=== PATIENT | male | born 1980 | race American Indian/Alaskan Native ===

== ENCOUNTER 2016-09-28 06:24 | Day surgery (SDC) | payer BC ==
[~2016-09-28 06:24] MED LIST: NACL 0.9% 1000 ML 1,000 ML IV SCH; PEPCID PO NR; VANCOMYCIN/NS 1 GM/250 ML 1 GM/250 ML BAG IV NR; VERSED IV NR
[2016-09-28] MEDS ORDERED: SUBLIMAZE ONE (07:05)
[2016-09-28] MEDS ORDERED: DIPRIVAN 10 MG/ML IV ONE ×2 (07:05→09:17)
[2016-09-28] MEDS ORDERED: NACL BACTERIOSTATIC INFILTRATI ONE (07:07)
[2016-09-28] MEDS ORDERED: XYLOCAINE MPF 2% ONE (07:08)
--- NOTE | 2016-09-28 07:37 | Anesthesia Day of Surgery ---
Anesthesia Day of Surgery - Day of Surgery Patient Examined: Yes Patient H&P Reviewed: Yes Patient is NPO: Yes Beta Blockers: Yes
--- NOTE | 2016-09-28 07:39 | Anesthesia Consultation ---
Anesthesia Consult and Med Hx Date of service: 09/28/16 - Airway Anesthetic Teeth Evaluation: Good ROM Head & Neck: Adequate Mental/Hyoid Distance: Adequate Mallampati Class: Class II Intubation Access Assessment: Probably Good - Pulmonary Exam CTA: Yes - Cardiac Exam Cardiac Exam: RRR - Pre-Operative Health Status ASA Pre-Surgery Classification: ASA3 Proposed Anesthetic Plan: General - Pulmonary Hx Smoking: Yes (stopped 2015, cigar only) Hx Asthma: No Hx Sleep Apnea: No (HIGH RISK) - Cardiovascular System Hx Hypertension: Yes Hx Heart Attack/AMI: No - Central Nervous System Hx Seizures: Yes (WHILE HOSPITALIZED/[facility] 08/2016) CVA: No - Endocrine Hx Renal Disease: Yes Hx End Stage Renal Disease: Yes (07/2016 JAYDAIUS /GAVINO; ,, SAT) Hx Liver Disease: No Hx Non-Insulin Dependent Diabetes: No - Other Systems Hx Alcohol Use: No Hx Substance Use: No Hx Cancer: No Hx Obesity: Yes - Additional Comments Anesthesia Medical History Comments: NAC
[2016-09-28] MEDS ORDERED: PAPAVERINE ONE (07:42)
[2016-09-28] MEDS ORDERED: HEPARIN ONE (07:42)
[2016-09-28] MEDS ORDERED: PROTAMINE SULFATE ONE (07:42)
[2016-09-28] MEDS ORDERED: MARCAINE 0.5% INFILTRATI ONE ×2 (07:42→10:42)
[2016-09-28] MEDS ORDERED: NITROGLYCERIN SYRINGE 3 ML ONE (07:43)
[2016-09-28] MEDS ORDERED: NACL 0.9% 500 ML 500 ML ONE (07:43)
[2016-09-28] MEDS ORDERED: HEPARIN 10,000 UNITS/10 ML ONE (07:43)
[2016-09-28 07:55] LABS: Basophils % (Auto) 0.7 % (0.0-1.8); Eosinophils % (Auto) 6.6 % (0.0-4.3); Hematocrit 40.9 % (35.5-45.6); Hemoglobin 12.9 gm/dl (11.8-15.2); Mean Corpuscular HGB Conc 32 % (32-34); Mean Corpuscular Hemoglobin 27 pg (28-32); Mean Corpuscular Volume 84 fl (84-94); Platelet Count 227 K/mm3 (140-440); Red Blood Count 4.85 M/mm3 (3.65-5.03); Red Cell Distribution Width 16.6 % (13.2-15.2)
[2016-09-28 08:01] LABS: BUN/Creatinine Ratio 3.26; Calcium 9.7 mg/dL (8.4-10.2); Chloride 94.3 mmol/L (98-107); Potassium 5.2 mmol/L (3.6-5.0)
[2016-09-28] MEDS ORDERED: ZOFRAN ONE ×2 (09:03→11:48)
[2016-09-28] MEDS ORDERED: HEPARIN IV ONE (09:20)
[2016-09-28] MEDS ORDERED: NEO SYNEPHRINE ONE (09:23)
[2016-09-28] MEDS ORDERED: ROBINUL ONE (09:37)
[2016-09-28] MEDS ORDERED: ePHEDrine SULFATE ONE (09:40)
--- NOTE | 2016-09-28 09:52 | Fluoroscopy Report ---
Single fluoroscopic image of the chest: History: Permacath exchange. Findings: Tip of the permacath is noted in mid superior vena cava. No pneumothorax. Impression: Tip of permacath in mid superior vena cava.
[2016-09-28] MEDS ORDERED: NACL 0.9% IR ONE (10:43)
[2016-09-28] MEDS ORDERED: HEPARIN 10,000 UNITS/10 ML 2,000 UNIT in NACL 0.9% 500 ML 500 ML IR ONE (10:44)
--- NOTE | 2016-09-28 11:03 | Short Stay Summary ---
Short Stay Documentation Date of service: 09/28/16 Narrative H&P: See H&P - History H&P: obtained from office - Allergies and Medications Current Medications: Allergies Penicillins Adverse Reaction (Verified 09/21/16 13:49) Anaphylaxis Home Medications Medication Instructions Recorded Confirmed Last Taken Type Aspirin EC [Aspirin Enteric Coated 81 mg PO QDAY 09/21/16 09/21/16 09/28/16 05: 00 History TAB] Calcium Acetate 3 tab PO TID 09/21/16 09/28/16 09/27/16 History Isosorb Dinit/Hydralazine HCl 1 each PO TID 09/21/16 09/21/16 09/28/16 05:00 History [Bidil Tablet] Metoprolol [Lopressor TAB] 50 mg PO BID 09/21/16 09/21/16 09/28/16 05:00 History amLODIPine [Norvasc] 10 mg PO DAILY 09/21/16 09/21/16 09/28/16 05:00 History Active Medications Famotidine (Pepcid) 20 mg PO PREOP NR Stop: 09/28/16 21:00 Last Admin: 09/28/16 07:35 Dose: 20 mg Sodium Chloride (Nacl 0.9% 1000 Ml) 1,000 mls @ 42 mls/hr IV DIRECT SIGIFREDO Last Admin: 09/28/16 07:39 Dose: 42 mls/hr Vancomycin HCl (Vancomycin/Ns 1 Gm/250 Ml) 1 gm in 250 mls @ 166.667 mls/hr IV PREOP NR PRN Reason: Protocol Stop: 09/28/16 23:00 Last Admin: 09/28/16 07:49 Dose: 166.667 mls/hr Midazolam HCl (Versed) 2 mg IV PREOP NR Stop: 09/28/16 23:59 Last Admin: 09/28/16 07:51 Dose: 2 mg - Brief post op/procedure progress note Date of procedure: 09/28/16 Pre-op diagnosis: End-Stage Renal Disease And Complications of Dialysis Access Post-op diagnosis: same Procedure: 1. Exchange of Right Internal Jugular Permacath to 23 cm GlidePath Permacath Over Wire 2. Radiologic Supervision and Interpretation 3. Creation of Left Brachiobasilic Arteriovenous Fistula Anesthesia: GETA Surgeon: THOMAS MANDUJANO Estimated blood loss: minimal Pathology: list (indwelling permacath) Specimen disposition: to lab Condition: stable - Disposition Condition at discharge: Good Disposition: DC-01 TO HOME OR SELFCARE Short Stay Discharge Plan Activity: other (no heavy lifting with left arm) Wound: open to air, keep clean and dry, other (okay to wash the wound with soap and water but do not soak in water) Follow up with: THOMAS MANDUJANO MD [Staff Physician] - 14 Days Prescriptions: HYDROcodone/APAP 7.5-325 [[place] 7.5/325] 1 each PO Q6HR PRN #60 tablet PRN Reason: Pain
--- NOTE | 2016-09-28 11:08 | Operative Report ---
Operative Report Operative Report: Date of procedure: 09/28/2016 Pre-operative diagnosis: End-stage Renal Disease And Complications of Dialysis Access Post-operative diagnosis: Same Procedure(s): 1. Exchange of Right Internal Jugular Permacath to 23 cm GlidePath Permacath Over Wire 2. Radiologic Supervision and Interpretation 3. Creation of Left Brachial Artery to Basilic Arteriovenous Fistula Surgeon: Elijah Adams MD Esthetics Instructor: None Anesthesia: Gen. endotracheal anesthesia EBL: Minimal Counts: Correct Complications: None Condition: Stable Findings: Successful placement of right internal jugular permacath with tip in the right atrium. Successful creation of left brachiobasilic arteriovenous fistula with palpable thrill and palpable radial pulse at the end of the case. Specimen: Previous indwelling right internal jugular permacath was discarded. Indication: The patient is a 36-year-old male with history of end-stage renal disease who is on hemodialysis through a right internal permacath. He is in need of long- term access and found to be a suitable candidate for creation of brachiobasilic arteriovenous fistula. In addition to require long-term access he has been having difficulty with use of his permacath. He requires permacath exchange. He was given risks, benefits, and alternative procedures and consented to procedure. Description of Procedure: The patient was brought to the operating room and laid in supine position. After general endotracheal anesthesia was administered the patient was prepped and draped in normal sterile fashion. A 0.035 J-wire was advanced through the indwelling permacath and into the central venous system under fluoroscopy. The cath was then dissected free from the surrounding tissue using a hemostat. The permacath was removed and a new permacath was advanced by Seldinger technique with the distal tip at the right atrium. The wire was removed and both ports were then aspirated and flushed and primed after performing on heparin. The 3- 0 Prolene was then used to secure the catheter in position. The catheter was then dressed sterilely. The final fluoroscopy demonstrated no evidence of pneumothorax and the tip of the catheter in the right atrium. The sterile field was then broken and the patient's left arm was then prepped and draped in normal sterile fashion. A transverse incision was created just below the antecubital crease. Dissection was carried down to the the basilic vein using sharp dissection. The vein was dissected out both proximally and distally and suture ligated and divided distally. I then ran a 3 Génesis proximally in the vein, to ensure patency of the vein. I then flushed the vein with heparinized saline and controlled flow with a bulldog clamp. I then dissected out the brachial artery through this incision circumferentially both proximal and distal and controlled th artery with vessel loops. I placed the vessel loops on tension, controlling the flow through the artery, and created an arteriotomy using an 11 blade and Fernandes scissors. I created an end to side anastomosis between the basilic vein and brachial artery using a 6-0 Prolene in running fashion. Prior to completing the anastomosis I flushed the artery both proximally and distally and then advanced a 3 Génesis proximally to break the spasm in the artery. I completed the anastomosis and removed all vessel loops allowing flow into the fistula which had an excellent thrill. I achieved hemostasis with a combination of direct pressure and electrocautery. Once hemostasis was achieved I anesthetized the wound with Marcaine. I closed the wound in 2 layers using 3-0 Vicryl in a running fashion to close the deep dermal layer and 4-0 Monocryl in a running fashion in the subcuticular layer. I dressed the wound with Surgicel. The patient tolerated the procedure well, all sponge needle and instrument counts were correct. The patient was taken to recovery in stable condition.
--- NOTE | 2016-09-28 11:42 | Post Anesthesia Evaluation ---
- Post Anesthesia Evaluation Patient Participated: Yes Airway Patent: Yes Stable Respiratory Function: Yes Temp > 96.8F: Yes Pain Manageable: Yes Adequeate Hydration: Yes Anesthesia Complications: No Block Receding Appropriately: Not Applicable
[2016-09-28] MEDS ORDERED: ZOFRAN IV PRN (12:15)
[2016-09-28 16:55] VITALS: BP 109/70
== END 2016-09-28 12:50 | disposition home or self-care (01) ==
LOC: OR 06:24
PROVIDERS: ATTEND Surgery Vascular Surgery
DX: T82.49XA Other complication of vascular dialysis catheter, initial encounter (principal); I12.0 Hypertensive chronic kidney disease with stage 5 chronic kidney disease or end stage renal disease; N18.6 End stage renal disease; D64.9 Anemia, unspecified; E55.9 Vitamin D deficiency, unspecified; E66.9 Obesity, unspecified; Z68.36 Body mass index [BMI] 36.0-36.9, adult; Z99.2 Dependence on renal dialysis; Z88.0 Allergy status to penicillin; Z88.1 Allergy status to other antibiotic agents; Z91.013 Allergy to seafood; Z91.010 Allergy to peanuts; Z79.82 Long term (current) use of aspirin; Z79.899 Other long term (current) drug therapy; Z98.890 Other specified postprocedural states; Z86.69 Personal history of other diseases of the nervous system and sense organs; Z87.891 Personal history of nicotine dependence; Z83.3 Family history of diabetes mellitus; Z82.49 Family history of ischemic heart disease and other diseases of the circulatory system; Y83.8 Other surgical procedures as the cause of abnormal reaction of the patient, or of later complication, without mention of misadventure at the time of the procedure
CPT/HCPCS: 36415; 36581; 36821; 77001; 80048; 85025; C1750; C1769; J1644; J2250; J2370; J2405; J2704; J3010; J3370; J7030; J7040; J2440; J2720

== ENCOUNTER 2017-04-23 08:22 | Day surgery (SDC) | payer BC, MEDICARE ==
[~2017-04-23 08:22] MED LIST changes: +HEPARIN 10,000 UNITS/10 ML ONE; +MARCAINE 0.5% INFILTRATI ONE; +NACL 0.9% 500 ML 500 ML ONE; +NITROGLYCERIN SYRINGE 0 ML ONE; +PAPAVERINE ONE; -PEPCID PO NR; +PROTAMINE SULFATE ONE; +SODIUM BICARBONATE ONE; -VERSED IV NR; +XYLOCAINE 1% 20 mL ONE
--- NOTE | 2017-04-23 09:01 | Anesthesia Consultation ---
Anesthesia Consult and Med Hx Date of service: 04/23/17 - Airway Anesthetic Teeth Evaluation: Good ROM Head & Neck: Adequate Mental/Hyoid Distance: Adequate Mallampati Class: Class II Intubation Access Assessment: Probably Good - Pulmonary Exam CTA: Yes - Cardiac Exam Cardiac Exam: RRR - Pre-Operative Health Status ASA Pre-Surgery Classification: ASA4 Proposed Anesthetic Plan: IV Sedation Nerve Block: supraclavicular block - Pulmonary Hx Smoking: Yes (former) Hx Asthma: No Hx Sleep Apnea: No (HIGH RISK) - Cardiovascular System Hx Hypertension: Yes Hx Heart Attack/AMI: No - Central Nervous System Hx Seizures: Yes (x1 only 08/2016) CVA: No Hx Psychiatric Problems: No - Endocrine Hx Renal Disease: Yes Hx End Stage Renal Disease: Yes Hx Liver Disease: No Hx Non-Insulin Dependent Diabetes: No - Other Systems Hx Alcohol Use: No Hx Substance Use: No Hx Cancer: No Hx Obesity: Yes - Additional Comments Anesthesia Medical History Comments: Informed consent obtained
[2017-04-23] MEDS ORDERED: DILAUDID IV PRN (09:02)
[2017-04-23] MEDS ORDERED: SUBLIMAZE IV NR (09:02)
[2017-04-23] MEDS ORDERED: PERCOCET 5/325 PO PRN (09:02)
--- NOTE | 2017-04-23 09:02 | Anesthesia Day of Surgery ---
Anesthesia Day of Surgery - Day of Surgery Patient Examined: Yes Patient H&P Reviewed: Yes Patient is NPO: Yes Beta Blockers: Yes (to be given in preop)
[2017-04-23] MEDS ORDERED: MARCAINE 0.5% 30 ML INFILTRATI ONE ×2 (09:17→11:34)
[2017-04-23] MEDS ORDERED: XYLOCAINE 1% 20 mL ONE (09:19)
[2017-04-23 09:30] LABS: Basophils % (Auto) 0.5 % (0.0-1.8); Eosinophils # (Auto) 0.2 K/mm3 (0.0-0.4); Eosinophils % (Auto) 3.1 % (0.0-4.3); Hematocrit 31.3 % (35.5-45.6); Hemoglobin 10.4 gm/dl (11.8-15.2); Lymphocytes # (Auto) 1.4 K/mm3 (1.2-5.4); Lymphocytes % (Auto) 27.1 % (13.4-35.0); Mean Corpuscular HGB Conc 33 % (32-34); Mean Corpuscular Hemoglobin 29 pg (28-32); Mean Corpuscular Volume 86 fl (84-94); Monocytes # (Auto) 0.7 K/mm3 (0.0-0.8); Monocytes % (Auto) 14.3 % (0.0-7.3); Platelet Count 265 K/mm3 (140-440); Red Blood Count 3.64 M/mm3 (3.65-5.03); Red Cell Distribution Width 18.4 % (13.2-15.2)
[2017-04-23] MEDS ORDERED: LOPRESSOR PO NR (10:00)
[2017-04-23] MEDS ORDERED: VERSED IV NR (10:00)
[2017-04-23 10:13] LABS: Calcium 9.5 mg/dL (8.4-10.2)
[2017-04-23] MEDS ORDERED: DIPRIVAN 10 MG/ML IV ONE ×2 (10:52→11:18)
[2017-04-23] MEDS ORDERED: XYLOCAINE CARDIAC IV ONE (10:52)
[2017-04-23] MEDS ORDERED: VERSED ONE (10:52)
[2017-04-23] MEDS ORDERED: SUBLIMAZE ONE (10:52)
[2017-04-23] MEDS ORDERED: MARCAINE 0.5% INFILTRATI ONE ×2 (11:34→14:47)
[2017-04-23] MEDS ORDERED: ZOFRAN ONE ×2 (11:37→15:40)
[2017-04-23] MEDS ORDERED: HEPARIN 10,000 UNITS/10 ML IV ONE (11:49)
[2017-04-23] MEDS ORDERED: NACL 0.9% 500 ML IRRIGATION ONE (11:49)
[2017-04-23] MEDS ORDERED: ePHEDrine SULFATE ONE (11:50)
[2017-04-23] MEDS ORDERED: NEO SYNEPHRINE/NS Syringe(OR USE) IV ONE (11:58)
[2017-04-23] MEDS ORDERED: ROBINUL ONE (12:34)
[2017-04-23] MEDS ORDERED: RIFADIN ONE (14:10)
--- NOTE | 2017-04-23 15:20 | Short Stay Summary ---
Short Stay Documentation Date of service: 04/23/17 Narrative H&P: See H&P - History H&P: obtained from office - Allergies and Medications Current Medications: Allergies Penicillins Adverse Reaction (Verified 04/22/17 11:22) Anaphylaxis Home Medications Medication Instructions Recorded Confirmed Last Taken Type Aspirin EC [Aspirin Enteric Coated 81 mg PO QDAY 09/21/16 04/22/17 09/28/16 05: 00 History TAB] Isosorbibe Dinit/Hydralazine 1 each PO TID 09/21/16 04/22/17 09/28/16 05:00 History [Bidil Tablet] Metoprolol [Lopressor TAB] 50 mg PO BID 09/21/16 04/22/17 09/28/16 05:00 History amLODIPine [Norvasc] 10 mg PO DAILY 09/21/16 04/22/17 09/28/16 05:00 History HYDROcodone/APAP 7.5-325 [[place] 1 each PO Q6HR PRN #60 tablet 09/28/16 04/22/17 Unknown Rx 7.5/325] Lisinopril [Zestril] 10 mg PO DAILY 04/22/17 04/22/17 Unknown History Sevelamer Carbonate [Renvela] 800 mg PO AC 04/22/17 04/22/17 Unknown History Active Medications Sodium Chloride (Nacl 0.9% 1000 Ml) 1,000 mls @ 42 mls/hr IV DIRECT SIGIFREDO Last Admin: 04/23/17 09:10 Dose: 42 mls/hr Vancomycin HCl (Vancomycin/Ns 1 Gm/250 Ml) 1 gm in 250 mls @ 166.667 mls/hr IV PREOP NR PRN Reason: Protocol Stop: 04/23/17 23:59 Last Admin: 04/23/17 10:33 Dose: 166.667 mls/hr Midazolam HCl (Versed) 2 mg IV PREOP NR Stop: 04/23/17 23:59 Last Admin: 04/23/17 09:21 Dose: 1 mg - Brief post op/procedure progress note Date of procedure: 04/23/17 Pre-op diagnosis: Complications of Dialysis Access Post-op diagnosis: same Procedure: Revision with Elevation of Left Brachiobasilic Arteriovenous Fistula Anesthesia: GETA Surgeon: THOMAS MANDUJANO Estimated blood loss: other (200 ml) Pathology: none Condition: stable - Disposition Condition at discharge: Good Disposition: DC-01 TO HOME OR SELFCARE Short Stay Discharge Plan Activity: other (No heavy lifting with left arm) Wound: open to air, keep clean and dry, other (Okay to wash with soap and water but do not soak in water) Follow up with: THOMAS MANDUJANO MD [Staff Physician] - 14 Days Prescriptions: HYDROcodone/APAP 7.5-325 [[place] 7.5/325] 1 each PO Q6HR PRN #60 tablet PRN Reason: Pain
--- NOTE | 2017-04-23 15:25 | Operative Report ---
Operative Report Operative Report: Date of procedure: 04/23/2017 Pre-operative diagnosis: Complications of Dialysis Access Post-operative diagnosis: Same Procedure(s): Revision with Elevation of Left Brachiobasilic AV Fistula Surgeon: Elijah Adams MD Outreach Consultant: None Anesthesia: General Endotracheal Anesthesia EBL: Minimal Counts: Correct Complications: None Condition: Stable Findings: Successful elevation of left brachiobasilic fistula with excellent thrill. Specimen: None Indication: The patient is a 37-year-old male with a history of end-stage renal disease who previously had creation of a left brachiobasilic arteriovenous. He is in need of revision with elevation. He was given the risks, benefits, and alternative procedures and consented to procedure. Description of Procedure: The patient was brought to the operating room and laid in supine position after general endotracheal anesthesia was achieved her left arm was prepped and draped in normal sterile fashion. A longitudinal incision was then created on the medial aspect of the arm centered over the fistula extending from the axillary crease to the antecubital crease. Sharp dissection was used to continue the dissection down to the fistula. The fistula was then dissected circumferentially and all side branches were suture ligated and divided. A Sherrell-Wick tunneler was then used to tunnel from the distal part of the incision towards the proximal portion of the incision and a lateral and slightly curved direction. The fistula was then marked on the anterior surface , the inflow was controlled with a DeBakey, clamp and the outflow was controlled with bulldog clamps. This vessel was then divided near the arterial inflow and secured to the Sherrell-Wick tunneler with 2-0 silk and then pulled retrograde through the tunnel. I flushed the venous outflow with heparinized saline to assure that there was no evidence of twist or kinks. I then performed an end-to-end anastomosis between the proximal and distal ends using two 6-0 Prolenes in running fashion. Prior to completing the anastomosis I flushed the arterial inflow of the fistula to ensure there was no clot or debris. I then completed the anastomosis and removed all clamps allowing flow through the fistula which had an excellent thrill. I achieved hemostasis in the wound with a combination of direct pressure and electrocautery. I then anesthetized the wound with Exparel and closed the wound in 2 layers using a 3- 0 Vicryl in running fashion in the deep dermal layer and a 4-0 Monocryl in running fashion in the subcuticular. I then dressed the wound with Surgicel. The patient tolerated the procedure well, all sponge needle and instrument counts were correct, the patient was taken to the recovery area in stable condition.
[2017-04-23] MEDS: APRESOLINE IV PRN ×2 (15:35→15:55)
[2017-04-23] MEDS ORDERED: APRESOLINE ONE (15:39)
[2017-04-23] MEDS ORDERED: ZOFRAN IV ONE (15:44)
[2017-04-23] MEDS ORDERED: DILAUDID IV SCH (17:00)
[2017-04-23 17:43] VITALS: BP 148/89
[2017-04-23] MEDS ORDERED: NORCO 7.5/325 PO SCH (18:00)
== END 2017-04-23 17:45 | disposition home or self-care (01) ==
LOC: OR 08:22
PROVIDERS: ATTEND Surgery Vascular Surgery
DX: T82.898A Other specified complication of vascular prosthetic devices, implants and grafts, initial encounter (principal); I12.0 Hypertensive chronic kidney disease with stage 5 chronic kidney disease or end stage renal disease; N18.6 End stage renal disease; D64.9 Anemia, unspecified; E66.9 Obesity, unspecified; Z68.35 Body mass index [BMI] 35.0-35.9, adult; Z98.890 Other specified postprocedural states; Z88.0 Allergy status to penicillin; Z79.899 Other long term (current) drug therapy; Z79.82 Long term (current) use of aspirin; Z79.2 Long term (current) use of antibiotics; Z83.3 Family history of diabetes mellitus; Z82.49 Family history of ischemic heart disease and other diseases of the circulatory system; Z87.891 Personal history of nicotine dependence
CPT/HCPCS: 36415; 36832; 64450; 80048; 85025; C1757; C1768; J0360; J1170; J1644; J2001; J2250; J2370; J2405; J2704; J3010; J3370; J7030; J7040; J2440; J2720; J3490

== ENCOUNTER 2018-03-27 10:37 | Inpatient (IN) | payer BC, MEDICARE ==
[~2018-03-27 10:37] MED LIST changes: -HEPARIN 10,000 UNITS/10 ML ONE; -MARCAINE 0.5% INFILTRATI ONE; -NACL 0.9% 500 ML 500 ML ONE; -NITROGLYCERIN SYRINGE 0 ML ONE; -PAPAVERINE ONE; -PROTAMINE SULFATE ONE; -SODIUM BICARBONATE ONE; -XYLOCAINE 1% 20 mL ONE
[2018-03-27 12:49] LABS: Calcium 9.2 mg/dL (8.4-10.2)
[2018-03-27] MEDS ORDERED: XYLOCAINE 1%/ EPI 1:100,000 INFILTRATI ONE (12:54)
[2018-03-27] MEDS ORDERED: HEPARIN 10,000 UNITS/10 ML ONE (12:54)
[2018-03-27] MEDS ORDERED: HEPARIN/NS 5000 UNIT/500ML(CATH LAB) 500 ML IR ONE (12:54)
[2018-03-27] MEDS ORDERED: NACL 0.9% 250ML 0 ML ONE (12:54)
[2018-03-27] MEDS ORDERED: SUBLIMAZE ONE (12:55)
[2018-03-27] MEDS ORDERED: VERSED ONE (12:55)
[2018-03-27] MEDS ORDERED: NACL 0.9% 100 ML IV PRN (13:41)
[2018-03-27] MEDS ORDERED: SODIUM CHLORIDE FLUSH SYRINGE 10 ML IV PRN (15:08)
[2018-03-27] MEDS ORDERED: ZOFRAN IV PRN (15:08)
[2018-03-27] MEDS ORDERED: TYLENOL PO PRN (15:08)
[2018-03-27] MEDS ORDERED: PROVENTIL IH PRN (15:08)
--- NOTE | 2018-03-27 15:08 | History and Physical Report ---
History of Present Illness Chief complaint: My access in clogged History of present illness: 38 YO Male with ESRD on HD (T,R,Sa), HTN, Obesity admitted directly from OPPU. Pt found to have clotted dialysis access and was unable to have dialysis. Pt seen and evaluated and underwent permacath placement. Pt seen and evaluated and found to have ESRD. Nephrology consulted for urgent dialysis, IR consulted to clotted AV fistula. Pt denies fever, chills, CP, Palptiations, NVD, shortness of breath, skin rash, or recent ill contacts. No reported nursing events. Past History Past Medical History: ESRD, hypertension Past Surgical History: Other (Permacath placement, LUE AVF) Social history: , lives with family. denies: smoking, alcohol abuse, prescription drug abuse Family history: hypertension Medications and Allergies Allergies Allergy/AdvReac Type Severity Reaction Status Date / Time lisinopril Allergy Hives Unverified 03/27/18 10:38 Penicillins AdvReac Anaphylaxis Verified 04/22/17 11:22 Home Medications Medication Instructions Recorded Confirmed Last Taken Type Isosorbibe Dinit/Hydralazine 1 each PO TID 09/21/16 03/27/18 03/26/18 History [Bidil Tablet] 1 tab Metoprolol [Lopressor TAB] 50 mg PO BID 09/21/16 03/27/18 03/26/18 History 1 tab Sucroferric Oxyhydroxide [Velphoro] 500 mg PO TID 03/27/18 03/27/18 03/26/18 History 1 tab Active Meds: Active Medications Sodium Chloride (Nacl 0.9% 1000 Ml) 1,000 mls @ 42 mls/hr IV DIRECT SIGIFREDO Last Admin: 03/27/18 12:11 Dose: 42 mls/hr Documented by: Vancomycin HCl (Vancomycin/Ns 1 Gm/250 Ml) 1 gm in 250 mls @ 166.667 mls/hr IV PREOP NR; Protocol Stop: 03/27/18 23:59 Sodium Chloride (Nacl 0.9%) 100 mls @ 999 mls/hr IV NEVAEH PRN PRN Reason: Hypotension Review of Systems Constitutional: no weight loss, no weight gain, no fever, no chills Ears, nose, mouth and throat: no ear pain, no ear discharge, no tinnitis, no dec reased hearing, no nasal congestion Cardiovascular: no chest pain, no orthopnea, no palpitations, no rapid/irregular heart beat, no edema Respiratory: no excessive sputum, no hemoptysis Gastrointestinal: no abdominal pain, no nausea, no vomiting, no diarrhea, no constipation, no change in bowel habits Genitourinary Male: no dysuria, no hematuria, no flank pain, no discharge, no urinary frequency, no urinary hesitancy Rectal: no pain, no incontinence, no bleeding Musculoskeletal: no neck stiffness, no low back pain, no shooting leg pain, no leg numbness/tingling Integumentary: no rash, no redness, no sores, no wounds, no boils Neurological: no transient paralysis, no paralysis, no weakness, no parathesias, no numbness, no tingling, no seizures Psychiatric: no anxiety, no memory loss, no change in sleep habits, no sleep disturbances, no insomnia, no hypersomnia, no change in appetite Endocrine: no cold intolerance, no heat intolerance, no polyphagia, no excessive thirst, no polydipsia, no polyuria Hematologic/Lymphatic: no easy bruising, no easy bleeding, no lymphadenopathy, no lymphedema Allergic/Immunologic: no urticaria, no anaphylaxis, no angioedema Exam - Constitutional Vitals: Temp Pulse Resp BP Pulse Ox 98.9 F 86 16 133/92 98 03/27/18 11:06 03/27/18 11:06 03/27/18 11:06 03/27/18 11:06 03/27/18 11:06 General appearance: Present: no acute distress, well-nourished - EENT Eyes: Present: PERRL ENT: hearing intact, clear oral mucosa - Neck Neck: Present: supple, normal ROM - Respiratory Respiratory effort: normal Respiratory: bilateral: CTA - Cardiovascular Heart Sounds: Present: S1 & S2. Absent: rub, click - Extremities Extremities: pulses symmetrical, No edema Peripheral Pulses: within normal limits - Abdominal General gastrointestinal: Present: soft, non-tender, non-distended, normal bowel sounds Male genitourinary: Present: normal - Integumentary Integumentary: Present: clear, warm, dry - Musculoskeletal Musculoskeletal: gait normal, strength equal bilaterally - Psychiatric Psychiatric: appropriate mood/affect, intact judgment & insight - Neurologic Neurologic: CNII-XII intact, moves all extremities Results - Labs CBC & Chem 7: 03/27/18 15:35 Labs: Abnormal lab results 03/27/18 03/27/18 Range/Units 11:55 12:33 Sodium 135 L (137-145) mmol/L Potassium 6.8 H* 7.9 H* (3.6-5.0) mmol/L Chloride 92.9 L (98-107) mmol/L BUN 37 H (9-20) mg/dL Creatinine 12.1 H (0.8-1.5) mg/dL Assessment and Plan - Patient Problems (1) ESRD (end stage renal disease) on dialysis Current Visit: Yes Status: Acute Plan to address problem: Nephrology consulted for urgent dialysis, dialysis as per renal team, avoid nephrotoxic agents, monitor uop q shift, (2) HTN (hypertension) Current Visit: Yes Status: Acute Qualifiers: Hypertension type: essential hypertension Qualified Code(s): I10 - Essential (primary) hypertension Plan to address problem: monitor bp q shift,continue medical management. (3) Dialysis catheter clot or failure Current Visit: Yes Status: Acute Plan to address problem: IV consulted for intervention in AM (4) DVT prophylaxis Current Visit: Yes Status: Acute Plan to address problem: SCD to BLE while in bed.
[2018-03-27 15:59] LABS: Calcium 8.8 mg/dL (8.4-10.2)
[2018-03-27] MEDS ORDERED: SUCROFERRIC OXYHYDROXIDE 500 MG PO SCH (20:00)
[2018-03-27] MEDS ORDERED: MORPHINE IV PRN (20:43)
[2018-03-27 20:57] LABS: Hematocrit 39.8 % (35.5-45.6); Hemoglobin 13.5 gm/dl (11.8-15.2); Mean Corpuscular HGB Conc 34 % (32-34); Mean Corpuscular Volume 96 fl (84-94); Platelet Count 223 K/mm3 (140-440); Red Blood Count 4.13 M/mm3 (3.65-5.03)
[2018-03-27 21:10] LABS: Red Cell Distribution Width 20.1 % (13.2-15.2)
[2018-03-27] MEDS: BIDIL 20/37.5MG PO SCH (21:38)
[2018-03-27] MEDS: LOPRESSOR PO SCH (21:39)
[2018-03-27] MEDS: SODIUM CHLORIDE FLUSH SYRINGE 10 ML IV SCH (21:40)
[2018-03-27 22:08] LABS: Total Cells Counted 100
[2018-03-27 22:09] LABS: Anisocytosis 1+; Ovalocytes 1+
--- NOTE | 2018-03-28 09:33 | Consultation ---
History of Present Illness - Reason for Consult Consult date: 03/28/18 end stage renal disease, hyperkalemia Requesting physician: JOYCE CORONADO - History of Present Illness This is a 38 yo M with past medical history of hypertension, obesity, ESRD on HD on TTS schedule, who recently had problems with his AVF and was scheduled for elective angioplasty, however prior to procedure pt was found to have elevated K > 7 on pre-op labs and was admitted directly from [facility]PPU. Pt seen and evaluated, has permacath which was placed on Sat, pt had regular HD on Sat without c omplications. Pt states that he was compliant with low K diet. Nephrology consulted for urgent dialysis for correction of hyperkalemia. Pt denies fever, chills, CP, Palptiations, NVD, shortness of breath, skin rash, or recent ill contacts. Past History Past Medical History: ESRD, hypertension Past Surgical History: Other (Permacath placement, LUE AVF) Social history: , lives with family. denies: smoking, alcohol abuse, prescription drug abuse Family history: hypertension Medications and Allergies Allergies Allergy/AdvReac Type Severity Reaction Status Date / Time lisinopril Allergy Hives Unverified 03/27/18 10:38 Penicillins AdvReac Anaphylaxis Verified 04/22/17 11:22 Home Medications Medication Instructions Recorded Confirmed Last Taken Type Isosorbibe Dinit/Hydralazine 1 each PO TID 09/21/16 03/27/18 03/26/18 History [Bidil Tablet] 1 tab Metoprolol [Lopressor TAB] 50 mg PO BID 09/21/16 03/27/18 03/26/18 History 1 tab Sucroferric Oxyhydroxide [Velphoro] 500 mg PO TID 03/27/18 03/27/18 03/26/18 History 1 tab Active Meds: Active Medications Acetaminophen (Tylenol) 650 mg PO Q4H PRN PRN Reason: Pain MILD(1-3)/Fever >100.5/ALLEN Albuterol (Proventil) 2.5 mg IH Q4HRT PRN PRN Reason: Shortness Of Breath Sodium Chloride (Nacl 0.9% 1000 Ml) 1,000 mls @ 42 mls/hr IV DIRECT SIGIFREDO Last Admin: 03/27/18 12:11 Dose: 42 mls/hr Documented by: Sodium Chloride (Nacl 0.9%) 100 mls @ 999 mls/hr IV NEVAEH PRN PRN Reason: Hypotension Isosorbide Dinitrate/Hydralazine (Bidil 20/37.5mg) 1 each PO TID [facility] Last Admin: 03/27/18 21:38 Dose: 1 each Documented by: Metoprolol Tartrate (Lopressor) 50 mg PO BID [facility] Last Admin: 03/27/18 21:39 Dose: 50 mg Documented by: Miscellaneous Medication (Sucroferric Oxyhydroxide [Velphoro]) 500 mg PO TID [facility] Morphine Sulfate (Morphine) 1 mg IV Q6H PRN PRN Reason: Pain, Moderate (4-6) Last Admin: 03/27/18 21:55 Dose: 1 mg Documented by: Ondansetron HCl (Zofran) 4 mg IV Q8H PRN PRN Reason: Nausea And Vomiting Sodium Chloride (Sodium Chloride Flush Syringe 10 Ml) 10 ml IV BID [facility] Last Admin: 03/27/18 21:40 Dose: 10 ml Documented by: Sodium Chloride (Sodium Chloride Flush Syringe 10 Ml) 10 ml IV PRN PRN PRN Reason: LINE FLUSH Review of Systems All systems: negative Constitutional: weakness Exam - Vital Signs Vital signs: Vital Signs Temp Pulse Resp BP Pulse Ox 98.9 F 86 16 133/92 98 03/27/18 11:06 03/27/18 11:06 03/27/18 11:06 03/27/18 11:06 03/27/18 11:06 - General Appearance General appearance: well-developed, well-nourished, appears stated age EENT: ATNC, PERRL, mucous membranes moist Neck: Present: neck supple Respiratory: Clear to Ascultation Heart: regular, S1S2 Gastrointestinal: Present: normoactive bowel sounds Integumentary: no rash, other (no edema ) Neurologic: no focal deficit, alert and oriented x3, strength 5/5, CN 3-12 intact Psychiatric: mood/affect appropriate, cooperative Results - Lab Results 03/27/18 20:34 03/27/18 15:35 Most recent lab results Calcium 8.8 mg/dL (8.4-10.2) 03/27/18 15:35 Assessment and Plan - Patient Problems (1) Hyperkalemia Current Visit: Yes Status: Acute Plan to address problem: s/p HD yesterday using 2K bath, another HD scheduled this AM to optimize for declotting procedure. (2) ESRD (end stage renal disease) on dialysis Current Visit: Yes Status: Acute Plan to address problem: cont HD on MWF schedule (3) HTN (hypertension) Current Visit: Yes Status: Acute Qualifiers: Hypertension type: essential hypertension Qualified Code(s): I10 - Essential (primary) hypertension Plan to address problem: monitor BP on current meds (4) AV fistula thrombosis Current Visit: Yes Status: Acute Plan to address problem: angioplasty scheduled today after HD
[2018-03-28 11:07] LABS: Calcium 9.2 mg/dL (8.4-10.2)
[2018-03-28] MEDS: LOPRESSOR PO SCH ×2 (12:24→21:49)
[2018-03-28] MEDS: BIDIL 20/37.5MG PO SCH ×3 (12:24→20:59)
[2018-03-28 12:57] LABS: Calcium 9.4 mg/dL (8.4-10.2)
[2018-03-28] MEDS: SODIUM CHLORIDE FLUSH SYRINGE 10 ML IV SCH ×2 (13:32→21:01)
[2018-03-28] MEDS ORDERED: NACL 0.9 (PRIMING MACHINE ONLY DIALYSIS) MC ONE (16:23)
--- NOTE | 2018-03-28 16:25 | Progress Note ---
Assessment and Plan - Patient Problems (1) ESRD (end stage renal disease) on dialysis Current Visit: Yes Status: Acute Plan to address problem: Nephrology consulted for urgent dialysis, dialysis as per renal team, avoid nephrotoxic agents, monitor uop q shift, (2) HTN (hypertension) Current Visit: Yes Status: Acute Qualifiers: Hypertension type: essential hypertension Qualified Code(s): I10 - Essential (primary) hypertension Plan to address problem: monitor bp q shift,continue medical management. (3) Dialysis catheter clot or failure Current Visit: Yes Status: Acute Plan to address problem: Has vascath (4) Hyperkalemia persists Treat with Kayexalate (5) DVT prophylaxis Current Visit: Yes Status: Acute Plan to address problem: SCD to BLE while in bed. Subjective Date of service: 03/28/18 Objective - Constitutional Vitals: Vital Signs - 12hr 03/28/18 03/28/18 03/28/18 05:20 08:51 11:47 Temperature 97.9 F 98.6 F Pulse Rate 74 65 73 Respiratory 16 18 20 Rate Blood Pressure 95/56 124/75 143/96 O2 Sat by Pulse 94 94 98 Oximetry General appearance: Present: no acute distress, well-nourished - EENT Eyes: PERRL, EOM intact ENT: hearing intact, clear oral mucosa Ears: bilateral: normal - Neck Neck: supple, normal ROM - Respiratory Respiratory effort: normal Respiratory: bilateral: CTA - Breasts Breasts: normal - Cardiovascular Rhythm: regular Heart Sounds: Present: S1 & S2. Absent: gallop, rub Extremities: pulses intact, No edema, normal color, Full ROM - Gastrointestinal General gastrointestinal: Present: soft, non-tender, non-distended, normal bowel sounds - Genitourinary Male genitourinary: normal - Integumentary Integumentary: clear, warm, dry - Musculoskeletal Musculoskeletal: 1, strength equal bilaterally - Neurologic Neurologic: moves all extremities - Psychiatric Psychiatric: memory intact, appropriate mood/affect, intact judgment & insight - Labs CBC & Chem 7: 03/27/18 20:34 03/28/18 12:28 Labs: Abnormal lab results 03/27/18 03/28/18 03/28/18 Range/Units 20:34 10:35 12:28 WBC 4.0 L (4.5-11.0) K/mm3 MCV 96 H (84-94) fl MCH 33 H (28-32) pg RDW 20.1 H (13.2-15.2) % Monocytes % (Manual) 15.0 H (0.0-7.3) % Eosinophils % (Manual) 6.0 H (0.0-4.3) % Lymphocytes # (Manual) 1.1 L (1.2-5.4) K/mm3 Sodium 135 L 135 L (137-145) mmol/L Potassium 7.0 H* D 6.0 H (3.6-5.0) mmol/L Chloride 93.6 L 93.4 L (98-107) mmol/L BUN 36 H 36 H (9-20) mg/dL Creatinine 12.1 H 11.9 H (0.8-1.5) mg/dL
--- NOTE | 2018-03-28 16:40 | Event Note ---
Date: 03/28/18 Scheduled for AVF thrombectomy, but had hyperkalemia requiring dialysis today. Reschedule for saturday.
[2018-03-28] MEDS ORDERED: KIONEX PO ONE (18:00)
[2018-03-28] MEDS ORDERED: CALCIUM GLUCONATE 2,000 MG in NACL 0.9% 100 ML IV ONE (18:00)
[2018-03-28] MEDS ORDERED: LOPRESSOR IV ONE (22:26)
[2018-03-29 08:58] LABS: Calcium 9.6 mg/dL (8.4-10.2)
--- NOTE | 2018-03-29 09:58 | Progress Note ---
Assessment and Plan - Patient Problems (1) Hyperkalemia Current Visit: Yes Status: Acute Plan to address problem: K corrected with HD, cont 2g K renal diet (2) ESRD (end stage renal disease) on dialysis Current Visit: Yes Status: Acute Plan to address problem: cont HD on MWF schedule (3) HTN (hypertension) Current Visit: Yes Status: Acute Qualifiers: Hypertension type: essential hypertension Qualified Code(s): I10 - [place] l (primary) hypertension Plan to address problem: monitor BP on current meds (4) AV fistula thrombosis Current Visit: Yes Status: Acute Plan to address problem: angioplasty tentatively on Mon Subjective Date of service: 03/29/18 Principal diagnosis: esrd, hyperkalemia Interval history: patient awake, alert, in NAD Objective - Vital Signs Vital signs: Vital Signs - 12hr 03/28/18 03/28/18 03/28/18 22:00 22:15 22:30 Temperature Pulse Rate 99 H Respiratory 17 Rate Blood Pressure 107/65 O2 Sat by Pulse 100 Oximetry 03/28/18 03/29/18 23:25 06:13 Temperature 98.3 F 98.6 F Pulse Rate 95 H 91 H Respiratory 18 20 Rate Blood Pressure 119/85 111/69 O2 Sat by Pulse 97 95 Oximetry - General Appearance General appearance: well-developed, well-nourished, appears stated age EENT: ATNC, PERRL, mucous membranes moist Neck: no JVD Respiratory: Present: Clear to Ascultation Cardiology: regular, S1S2 Gastrointestinal: normoactive bowel sounds Integumentary: no rash, other (no edema ) Neurologic: no focal deficit, alert and oriented x3, strength 5/5, CN 3-12 intact Psychiatric: mood/affect appropriate, cooperative - Lab 03/27/18 20:34 03/29/18 08:19 Most recent lab results Calcium 9.6 mg/dL (8.4-10.2) 03/29/18 08:19 Medications & Allergies - Medications Allergies/Adverse Reactions: Allergies lisinopril Allergy (Unverified 03/27/18 10:38) Hives Penicillins Adverse Reaction (Verified 04/22/17 11:22) Anaphylaxis Home Medications: Home Medications Medication Instructions Recorded Confirmed Last Taken Type Isosorbibe Dinit/Hydralazine 1 each PO TID 07/10/0103/27/18 03/26/18 History [Bidil Tablet] 1 tab Metoprolol [Lopressor TAB] 50 mg PO BID 09/21/16 03/27/18 03/26/18 History 1 tab Sucroferric Oxyhydroxide [Velphoro] 500 mg PO TID 03/27/18 03/27/18 03/26/18 History 1 tab Active Medications: Generic Name Dose Route Start Last Admin Trade Name Freq PRN Reason Stop Dose Admin Acetaminophen 650 mg 03/27/18 15:08 Tylenol PO Q4H PRN Pain MILD(1-3)/Fever >100.5/ALLEN Albuterol 2.5 mg 03/27/18 15:08 Proventil IH Q4HRT PRN Shortness Of Breath Sodium Chloride 1,000 mls @ 42 mls/hr 03/27/18 06:00 03/27/18 12:11 Nacl 0.9% 1000 Ml IV 42 mls/hr DIRECT SIGIFREDO Administration Sodium Chloride 100 mls @ 999 mls/hr 03/27/18 13:41 Nacl 0.9% IV NEVAEH PRN Hypotension Isosorbide Dinitrate/Hydralazine 1 each 03/27/18 20:00 03/28/18 20:59 Bidil 20/37.5mg PO 1 each TID SIGIFREDO Administration Metoprolol Tartrate 50 mg 03/27/18 22:00 03/28/18 21:49 Lopressor PO 50 mg BID SIGIFREDO Administration Miscellaneous Medication 500 mg 03/27/18 20:00 Sucroferric Oxyhydroxide [Velphoro] PO TID SIGIFREDO Morphine Sulfate 1 mg 03/27/18 20:43 03/27/18 21:55 Morphine IV 1 mg Q6H PRN Administration Pain, Moderate (4-6) Ondansetron HCl 4 mg 03/27/18 15:08 Zofran IV Q8H PRN Nausea And Vomiting Sodium Chloride 10 ml 03/27/18 22:00 03/28/18 21:01 Sodium Chloride Flush Syringe 10 Ml IV 10 ml BID SIGIFREDO Administration Sodium Chloride 10 ml 03/27/18 15:08 Sodium Chloride Flush Syringe 10 Ml IV PRN PRN LINE FLUSH
[2018-03-29] MEDS: BIDIL 20/37.5MG PO SCH ×3 (11:32→21:50)
[2018-03-29] MEDS: SODIUM CHLORIDE FLUSH SYRINGE 10 ML IV SCH ×2 (11:33→21:51)
[2018-03-29] MEDS: LOPRESSOR PO SCH ×2 (11:33→21:51)
--- NOTE | 2018-03-29 15:00 | Progress Note ---
Assessment and Plan - Patient Problems (1) ESRD (end stage renal disease) on dialysis Current Visit: Yes Status: Acute Plan to address problem: Nephrology consulted for urgent dialysis, dialysis as per renal team, avoid nephrotoxic agents, monitor uop q shift, (2) HTN (hypertension) Current Visit: Yes Status: Acute Qualifiers: Hypertension type: essential hypertension Qualified Code(s): I10 - Essential (primary) hypertension Plan to address problem: monitor bp q shift,continue medical management. (4) AV fistula thrombosis Current Visit: Yes Status: Acute Plan to address problem: angioplasty tentatively on Mon (5) Hyperkalemia Improved (6) DVT prophylaxis Current Visit: Yes Status: Acute Plan to address problem: SCD to BLE while in bed. Subjective Date of service: 03/29/18 Principal diagnosis: esrd, hyperkalemia Interval history: Doing well Objective - Constitutional Vitals: Vital Signs - 12hr 03/29/18 03/29/18 03/29/18 06:13 11:32 11:48 Temperature 98.6 F 98.6 F Pulse Rate 91 H 81 73 Respiratory 20 20 Rate Blood Pressure 111/69 132/88 129/93 O2 Sat by Pulse 95 98 Oximetry General appearance: Present: no acute distress, well-nourished - EENT Eyes: PERRL, EOM intact ENT: hearing intact, clear oral mucosa Ears: bilateral: normal - Neck Neck: supple, normal ROM - Respiratory Respiratory effort: normal Respiratory: bilateral: CTA - Breasts Breasts: normal - Cardiovascular Rhythm: regular Heart Sounds: Present: S1 & S2. Absent: gallop, rub Extremities: pulses intact, No edema, normal color, Full ROM - Gastrointestinal General gastrointestinal: Present: soft, non-tender, non-distended, normal bowel sounds - Genitourinary Male genitourinary: normal - Integumentary Integumentary: clear, warm, dry - Musculoskeletal Musculoskeletal: 1, strength equal bilaterally - Neurologic Neurologic: moves all extremities - Psychiatric Psychiatric: memory intact, appropriate mood/affect, intact judgment & insight - Labs CBC & Chem 7: 03/27/18 20:34 03/29/18 08:19 Labs: Abnormal lab results 03/29/18 Range/Units 08:19 Chloride 92.7 L (98-107) mmol/L BUN 34 H (9-20) mg/dL Creatinine 11.9 H (0.8-1.5) mg/dL
--- NOTE | 2018-03-30 09:42 | Progress Note ---
Assessment and Plan - Patient Problems (1) Hyperkalemia Current Visit: Yes Status: Acute Plan to address problem: K corrected with HD, cont 2g K renal diet (2) ESRD (end stage renal disease) on dialysis Current Visit: Yes Status: Acute Plan to address problem: cont HD on MWF schedule (3) HTN (hypertension) Current Visit: Yes Status: Acute Qualifiers: Hypertension type: essential hypertension Qualified Code(s): I10 - Ess[place]ia l (primary) hypertension Plan to address problem: monitor BP on current meds (4) AV fistula thrombosis Current Visit: Yes Status: Acute Plan to address problem: angioplasty tentatively on Mon Subjective Date of service: 03/30/18 Principal diagnosis: esrd, hyperkalemia Interval history: patient awake, alert, in NAD Objective - Vital Signs Vital signs: Vital Signs - 12hr 03/29/18 03/29/18 03/29/18 21:50 21:51 23:49 Temperature 98.3 F Pulse Rate 83 83 82 Respiratory 18 Rate Blood Pressure 139/82 139/82 127/88 O2 Sat by Pulse 97 Oximetry 03/30/18 06:08 Temperature 97.0 F L Pulse Rate 79 Respiratory 16 Rate Blood Pressure 107/50 O2 Sat by Pulse 94 Oximetry - General Appearance General appearance: well-developed, well-nourished, appears stated age EENT: ATNC, PERRL, mucous membranes moist Neck: no JVD Respiratory: Present: Clear to Ascultation Cardiology: regular, S1S2 Gastrointestinal: normoactive bowel sounds Integumentary: no rash, other (no edema ) Neurologic: no focal deficit, alert and oriented x3, strength 5/5, CN 3-12 in tact Psychiatric: mood/affect appropriate, cooperative - Lab 03/27/18 20:34 03/29/18 08:19 Most recent lab results Calcium 9.6 mg/dL (8.4-10.2) 03/29/18 08:19 Medications & Allergies - Medications Allergies/Adverse Reactions: Allergies lisinopril Allergy (Unverified 03/27/18 10:38) Hives Penicillins Adverse Reaction (Verified 04/22/17 11:22) Anaphylaxis Home Medications: Home Medications Medication Instructions Recorded Confirmed Last Taken Type Isosorbibe Dinit/Hydralazine 1 each PO TID 09/21/16 03/27/18 03/26/18 History [Bidil Tablet] 1 tab Metoprolol [Lopressor TAB] 50 mg PO BID 09/21/16 03/27/18 03/26/18 History 1 tab Sucroferric Oxyhydroxide [Velphoro] 500 mg PO TID 03/27/18 03/27/18 03/26/18 History 1 tab Active Medications: Generic Name Dose Route Start Last Admin Trade Name Freq PRN Reason Stop Dose Admin Acetaminophen 650 mg 03/27/18 15:08 03/29/18 11:38 Tylenol PO 650 mg Q4H PRN Administration Pain MILD(1-3)/Fever >100.5/ALLEN Albuterol 2.5 mg 03/27/18 15:08 Proventil IH Q4HRT PRN Shortness Of Breath Sodium Chloride 1,000 mls @ 42 mls/hr 03/27/18 06:00 03/27/18 12:11 Nacl 0.9% 1000 Ml IV 42 mls/hr DIRECT SIGIFREDO Administration Sodium Chloride 100 mls @ 999 mls/hr 03/27/18 13:41 Nacl 0.9% IV NEVAEH PRN Hypotension Isosorbide Dinitrate/Hydralazine 1 each 03/27/18 20:00 03/29/18 21:50 Bidil 20/37.5mg PO 1 each TID SIGIFREDO Administration Metoprolol Tartrate 50 mg 03/27/18 22:00 03/29/18 21:51 Lopressor PO 50 mg BID SIGIFREDO Administration Miscellaneous Medication 500 mg 03/27/18 20:00 Sucroferric Oxyhydroxide [Velphoro] PO TID SIGIFREDO Morphine Sulfate 1 mg 03/27/18 20:43 03/27/18 21:55 Morphine IV 1 mg Q6H PRN Administration Pain, Moderate (4-6) Ondansetron HCl 4 mg 03/27/18 15:08 Zofran IV Q8H PRN Nausea And Vomiting Sodium Chloride 10 ml 03/27/18 22:00 03/29/18 21:51 Sodium Chloride Flush Syringe 10 Ml IV 10 ml BID SIGIFREDO Administration Sodium Chloride 10 ml 03/27/18 15:08 Sodium Chloride Flush Syringe 10 Ml IV PRN PRN LINE FLUSH
[2018-03-30] MEDS: SODIUM CHLORIDE FLUSH SYRINGE 10 ML IV SCH ×2 (10:02→22:28)
[2018-03-30] MEDS: BIDIL 20/37.5MG PO SCH ×3 (10:02→22:28)
[2018-03-30] MEDS: LOPRESSOR PO SCH ×2 (12:27→22:27)
--- NOTE | 2018-03-30 14:35 | Progress Note ---
Assessment and Plan - Patient Problems (1) ESRD (end stage renal disease) on dialysis Current Visit: Yes Status: Acute Plan to address problem: Cont HD as per schedule (2) HTN (hypertension) Current Visit: Yes Status: Acute Qualifiers: Hypertension type: essential hypertension Qualified Code(s): I10 - Essential (primary) hypertension Plan to address problem: Cont antihypertensives (4) AV fistula thrombosis Current Visit: Yes Status: Acute Plan to address problem: angioplasty tentatively on Mon (5) Hyperkalemia Improved (6) DVT prophylaxis Current Visit: Yes Status: Acute Plan to address problem: SCD to BLE while in bed. Subjective Date of service: 03/30/18 Principal diagnosis: esrd, hyperkalemia Interval history: Doing well Objective - Constitutional Vitals: Vital Signs - 12hr 03/30/18 03/30/18 06:08 10:02 Temperature 97.0 F L Pulse Rate 79 80 Respiratory 16 Rate Blood Pressure 107/50 132/86 O2 Sat by Pulse 94 Oximetry General appearance: Present: no acute distress, well-nourished - EENT Eyes: PERRL, EOM intact ENT: hearing intact, clear oral mucosa Ears: bilateral: normal - Neck Neck: supple, normal ROM - Respiratory Respiratory effort: normal Respiratory: bilateral: CTA - Breasts Breasts: normal - Cardiovascular Heart rate: 76 Rhythm: regular Heart Sounds: Present: S1 & S2. Absent: gallop, rub Extremities: pulses intact, No edema, normal color, Full ROM - Gastrointestinal General gastrointestinal: Present: soft, non-tender, non-distended, normal bowel sounds - Genitourinary Male genitourinary: normal - Integumentary Integumentary: clear, warm, dry - Musculoskeletal Musculoskeletal: 1, strength equal bilaterally - Neurologic Neurologic: moves all extremities - Psychiatric Psychiatric: memory intact, appropriate mood/affect, intact judgment & insight - Labs CBC & Chem 7: 03/27/18 20:34 03/29/18 08:19
--- NOTE | 2018-03-31 07:28 | Progress Note ---
Assessment and Plan - Patient Problems (1) AV fistula thrombosis Current Visit: Yes Status: Acute Plan to address problem: Plan for angioplasty today. (2) ESRD (end stage renal disease) on dialysis Current Visit: Yes Status: Acute Plan to address problem: Maintain on MWF HD schedule as an inpatient. (3) Hyperkalemia Current Visit: Yes Status: Acute Plan to address problem: Resolved with HD. Need to ensure that patient is on a low K renal diet. (4) HTN (hypertension) Current Visit: Yes Status: Acute Qualifiers: Hypertension type: essential hypertension Qualified Code(s): I10 - Essential (primary) hypertension Plan to address problem: Continue current management. Will continue to monitor. Subjective Date of service: 03/31/18 Principal diagnosis: esrd, hyperkalemia Interval history: No acute issues overnight. he has been kept NPO since midnight for angioplasty today. Objective - Vital Signs Vital signs: Vital Signs - 12hr 03/30/18 03/30/18 03/31/18 22:27 22:28 00:49 Temperature 98.3 F Pulse Rate 80 80 79 Respiratory 18 Rate Blood Pressure 133/85 133/85 145/69 O2 Sat by Pulse 97 Oximetry - General Appearance General appearance: well-developed, well-nourished, appears stated age EENT: ATNC, PERRL Neck: no JVD, no thyromegaly Respiratory: Present: Clear to Ascultation Cardiology: regular, S1S2 Gastrointestinal: normal, normoactive bowel sounds Integumentary: no rash, warm and dry Neurologic: no focal deficit, no asterixis Musculoskeletal: other (-edema ) Psychiatric: mood/affect appropriate, cooperative - Lab 03/27/18 20:34 03/31/18 05:11 Most recent lab results Calcium 9.0 mg/dL (8.4-10.2) 03/31/18 05:11 - Allied health notes Allied health notes reviewed: nursing Medications & Allergies - Medications Allergies/Adverse Reactions: Allergies lisinopril Allergy (Unverified 03/27/18 10:38) Hives Penicillins Adverse Reaction (Verified 04/22/17 11:22) Anaphylaxis Home Medications: Home Medications Medication Instructions Recorded Confirmed Last Taken Type Isosorbibe Dinit/Hydralazine 1 each PO TID 09/21/16 03/27/18 03/26/18 History [Bidil Tablet] 1 tab Metoprolol [Lopressor TAB] 50 mg PO BID 09/21/16 03/27/18 03/26/18 History 1 tab Sucroferric Oxyhydroxide [Velphoro] 500 mg PO TID 03/27/18 03/27/18 03/26/18 History 1 tab Active Medications: Generic Name Dose Route Start Last Admin Trade Name Freq PRN Reason Stop Dose Admin Acetaminophen 650 mg 03/27/18 15:08 03/29/18 11:38 Tylenol PO 650 mg Q4H PRN Administration Pain MILD(1-3)/Fever >100.5/ALLEN Albuterol 2.5 mg 03/27/18 15:08 Proventil IH Q4HRT PRN Shortness Of Breath Sodium Chloride 1,000 mls @ 42 mls/hr 03/27/18 06:00 03/27/18 12:11 Nacl 0.9% 1000 Ml IV 42 mls/hr DIRECT SIGIFREDO Administration Sodium Chloride 100 mls @ 999 mls/hr 03/27/18 13:41 Nacl 0.9% IV NEVAEH PRN Hypotension Isosorbide Dinitrate/Hydralazine 1 each 03/27/18 20:00 03/30/18 22:28 Bidil 20/37.5mg PO 1 each TID SIGIFREDO Administration Metoprolol Tartrate 50 mg 03/27/18 22:00 03/30/18 22:27 Lopressor PO 50 mg BID SIGIFREDO Administration Miscellaneous Medication 500 mg 03/27/18 20:00 Sucroferric Oxyhydroxide [Velphoro] PO TID SIGIFREDO Morphine Sulfate 1 mg 03/27/18 20:43 03/27/18 21:55 Morphine IV 1 mg Q6H PRN Administration Pain, Moderate (4-6) Ondansetron HCl 4 mg 03/27/18 15:08 Zofran IV Q8H PRN Nausea And Vomiting Sodium Chloride 10 ml 03/27/18 22:00 03/30/18 22:28 Sodium Chloride Flush Syringe 10 Ml IV 10 ml BID SIGIFREDO Administration Sodium Chloride 10 ml 03/27/18 15:08 Sodium Chloride Flush Syringe 10 Ml IV PRN PRN LINE FLUSH
[2018-03-31] MEDS: BIDIL 20/37.5MG PO SCH ×3 (09:41→20:59)
[2018-03-31] MEDS: SODIUM CHLORIDE FLUSH SYRINGE 10 ML IV SCH ×2 (10:09→21:00)
[2018-03-31] MEDS: LOPRESSOR PO SCH ×2 (12:15→20:58)
[2018-03-31] MEDS ORDERED: HEPARIN/NS 5000 UNIT/500ML(CATH LAB) 1,000 ML IR ONE (13:42)
[2018-03-31] MEDS: VERSED ONE ×7 (13:59→15:34)
[2018-03-31] MEDS: SUBLIMAZE ONE ×7 (14:00→15:34)
[2018-03-31] MEDS: XYLOCAINE 2% INFILTRATI ONE ×3 (14:00→14:52)
[2018-03-31] MEDS ORDERED: CATHFLO ONE (14:16)
[2018-03-31] MEDS: HEPARIN 10,000 UNITS/10 ML ONE ×3 (14:16→15:06)
--- NOTE | 2018-03-31 15:57 | Post Operative Note ---
Date of procedure: 03/31/18 Pre-op diagnosis: ESRD with thrombosed AVF Post-op diagnosis: same Procedure: 1. Ultrasound guided access of the left basilic vein AVF towards the venous outflow 2. Fistulogram and crossing venous INJECTION MOLDING OPERATOR 3. Selection of the left subclavian vein with central venography 4. Angioplasty of the left basilic vein, and stented basilic vein with an 8 mm x 80 mm angioplasty balloon, 8 mm x 40 mm [place] angioplasty balloon and 8 mm x 40 mm [place] angioplasty balloon 5. Infusion of 4 mg of tPA in the AVF and Trerotola mechanical thrombectomy of the AVF 6. Stenting of the left distal basilic vein with an 8 mm x 100 mm Covera covered stent 7. Génesis thrombectomy of the AVF towards the venous outflow 8. Ultrasound guided access of the left basilic vein AVF towards the anastamosis 9. Selection of the brachial artery in a retrograde fashion with angiography of the left upper extremity 10. Génesis thrombectomy of the AVF towards the arterial sheath 11. Angioplasty of the anastamosis and perianastamotic portion of the AVF with a 6 mm x 60 mm angioplasty balloon 12. Génesis thrombectomy of the AVF 13. Trerotola mechanical thrombectomy of the AVF 14. Stenting of the left mid to distal basilic vein with a 8 mm x 80 mm Covera covered stent Anesthesia: local (w/ conscious sedation) Surgeon: JOYCE CORONADO Estimated blood loss: minimal Condition: stable Disposition: floor
--- NOTE | 2018-03-31 15:58 | Operative Report ---
Operative Report Operative Report: EXAM: 1. Ultrasound guided access of the left basilic vein AVF towards the venous outflow 2. Fistulogram and crossing venous GROUND CREWMAN 3. Selection of the left subclavian vein with central venography 4. Angioplasty of the left basilic vein, and previously stented basilic vein with an 8 mm x 80 mm angioplasty balloon, 8 mm x 40 mm Hugo angioplasty balloon and 8 mm x 40 mm Conquest angioplasty balloon 5. Infusion of 4 mg of tPA in the AVF and Trerotola mechanical thrombectomy of the AVF 6. Stenting of the left distal basilic vein with an 8 mm x 100 mm Covera covered stent 7. Génesis thrombectomy of the AVF towards the venous outflow 8. Ultrasound guided access of the left basilic vein AVF towards the anastamosis 9. Selection of the brachial artery in a retrograde fashion with angiography of the left upper extremity 10. Génesis thrombectomy of the AVF towards the arterial sheath 11. Angioplasty of the anastamosis and perianastamotic portion of the AVF with a 6 mm x 60 mm angioplasty balloon 12. Génesis thrombectomy of the AVF 13. Trerotola mechanical thrombectomy of the AVF 14. Stenting of the left mid to distal basilic vein with a 8 mm x 80 mm Covera covered stent INDICATION: THROMBOSED LEFT ARM AV FISTULA WITH END-STAGE RENAL DISEASE. DATE: 03/31/18 MEDICATIONS: Please refer to nursing documentation for complete list of medications and heparin administration. VERSED AND FENTANYL TITRATED TO MODERATE SEDATION. THE PATIENT WAS MONITORED UNDER CONTINUOUS CARDIOPULMONARY MONITORING THROUGHOUT THE CASE. COMPLICATIONS: NONE IMMEDIATE DIAL BRUSHER: JOYCE CORONADO MD PROCEDURE: The procedure was discussed with the patient and the risks, benefits, and alternatives were discussed with the patient. Informed consent was obtained. The patient was transported into the angiography suite in stable condition and placed on the angiographic table. The left arm was assessed under real-time ultrasound which demonstrated a thrombosed left arm AV fistula. The patient was prepped and draped in a sterile fashion. Lidocaine was used to anesthetize the skin. Under ultrasound guidance, the AV fistula was punctured with the needle pointing towards the venous limb. 0.018 inch wire was advanced through the needle and this was exchanged for a transitional dilator. The inner dilator and wire were removed and a 0.035 inch Perez wire was advanced through the transitional dilator. The dilator was exchanged for a 7 Hebrew short sheath. Angled catheter was advanced over the wire and the wire was advanced into the stented basilic vein. After changing wires and with catheter manipulation, the distal basilic vein chronic total occlusion was crossed and wire was passed into the IVC. Angled catheter was used to perform a pullback venogram. Digital subtraction venography was performed in the left subclavian vein which demonstrated no central obstruction to flow. Catheter was exchanged for an 8 mm balloon and the venous limb was sequentially venoplasty. The original balloon was too compliant and did not result in resolution of the waist. A more noncompliant balloon was used, but this was not adequate and a completely noncompliant balloon was required in order to perform angioplasty of the basilic vein to the venous sheath. Pullback venography was performed demonstrating severe narrowing within the distal basilic vein as it entered the central axillary vein. There is thrombus and most of the basilic vein. 4 mg of TPA were infused through the length of the clot to the sheath as the arterial anastomosis was manually compressed. Trerotola thrombectomy device was used multiple times through the venous limb. Trerotola device was then removed. Angled catheter and Perez wire were negotiated into the inferior vena cava. I attempted to use a Génesis balloon to sweep into the central system but it would not pass through the distal basilic vein. I subsequently decided to s tent the distal basilic vein with stent graft and reline part of the stent with an 8 mm x 100 mm Covera covered stent. This was dilated with an 8 mm angioplasty balloon. Génesis thrombectomy was then used to sweep from the venous sheath to the venous outflow. The arm was then punctured towards the arterial anastomosis under ultrasound guidance. 0.018 inch wire was advanced through the needle and exchanged for transitional dilator. The inner dilator and wire were removed and a 0.035 inch Glidewire was advanced to the transitional dilator. The dilator was exchanged for 6 Hebrew short sheath. The angled catheter was advanced over the 0.035 wire and the wire was advanced into the mechoopda brachial artery in a retrograde fashion. Digital subtraction angiography was performed which demonstrated occlusion of the AV fistula with patency of the brachial artery proximal and distal to the anastomosis. The anastomosis was patent, but the perianastomotic portion was occluded.. Génesis catheter was inflated and use to sweep the anastomosis and perianastomosis multiple times, pulling the plug towards the venous limb. Despite Génesis thrombectomy in both directions, no flow was obtained. 6 mm balloon was then used to perform angioplasty throughout the perianastomotic area, anastomotic area, and peripheral basilic vein. Afterwards, Génesis thrombectomy was used to pull the plug towards the venous limb and blood was obtained. Blood was aspirated from both sheaths. Génesis catheter was exchanged for the angled catheter and digital subtraction angiography was performed. This demonstrated residual thrombus in the AV fistula with 50% narrowing at the perianastomotic region resulting in a 4-5 mm lumen which is appropriate in size for the fistula since the anastamosis was 10 mm in size. Repeat Génesis thrombectomy and subsequent trerotola mechanical thrombectomy was then used to clear the rest of the thrombus within the AV fistula. Repeat 8 mm angioplasty was performed and AV fistula. There was a residual moderate to severe narrowing 1 cm peripheral to the stent in the distal basilic vein and I decided to line this area to prevent early reocclusion. 8 mm x 80 mm Covera stent graft was deployed in this region and post dilated with an 8 mm balloon. Final images demonstrate a widely patent anastomosis with 50% narrowing at the perianastomotic region resulting in a 4-5 mm lumen which is appropriate in flow size with patency of the rest of the fistula and widely patent outflow with patent central veins. There is a thrill. All the wires were removed. 3-0 Vicryl sutures were used to close the fistula access sites. Dermabond was applied. Pressure was held until hemostasis was achieved. The patient was then transferred to the outpatient recovery area. FINDINGS: Please see the procedure note for the findings. IMPRESSION: 1. Successful pharmacomechanical thrombectomy of the thrombosed left AV graft. 2. Successful peripheral dialysis angioplasty and stenting.
--- NOTE | 2018-03-31 16:02 | Event Note ---
Date: 03/31/18 38 year old male with ESRD and left brachio-basilic AVF thrombosed for 8 days. Successful thrombectomy with stenting of the AVF. Recommend using the AVF. After 3 successful dialysis sessions, patient will contact our office and his permcath will be removed.
--- NOTE | 2018-03-31 17:13 | Discharge Summary ---
Providers - Providers Date of Admission: 03/27/18 15:08 Date of discharge: 03/31/18 Attending physician: BIRD MIKE Primary care physician: AMANDA WESTON MD Hospitalization Procedures: 38 year old male with ESRD and left brachio-basilic AVF thrombosed for 8 days. Successful thrombectomy with stenting of the AVF. Recommend using the AVF. After 3 successful dialysis sessions, patient will contact Dr Babin's office and his permcath will be removed. Hospital course: Patient Problems (1) ESRD (end stage renal disease) on dialysis Current Visit: Yes Status: Acute Plan to address problem: Cont HD as per schedule (2) HTN (hypertension) Current Visit: Yes Status: Acute Qualifiers: Hypertension type: essential hypertension Qualified Code(s): I10 - Essential (primary) hypertension Plan to address problem: Cont antihypertensives (3) AV fistula thrombosis Current Visit: Yes Status: Acute Plan to address problem: angioplasty tentatively on Mon (4) Hyperkalemia Improved Disposition: DC-01 TO HOME OR SELFCARE Core Measure Documentation - Palliative Care Palliative Care/ Comfort Measures: Not Applicable - Core Measures Any of the following diagnoses?: none Exam - Constitutional Vitals: Temp Pulse Resp BP Pulse Ox 98.0 F 73 20 108/45 92 03/31/18 11:44 03/31/18 11:44 03/31/18 11:44 03/31/18 12:15 03/31/18 11:44 General appearance: Present: no acute distress, well-nourished - EENT Eyes: Present: PERRL ENT: hearing intact, clear oral mucosa - Neck Neck: Present: supple, normal ROM - Respiratory Respiratory effort: normal Respiratory: bilateral: CTA - Cardiovascular Heart Sounds: Present: S1 & S2. Absent: rub, click - Extremities Extremities: pulses symmetrical, No edema Peripheral Pulses: within normal limits - Abdominal General gastrointestinal: Present: soft, non-tender, non-distended, normal bowel sounds Male genitourinary: Present: normal - Integumentary Integumentary: Present: clear, warm, dry - Musculoskeletal Musculoskeletal: gait normal, strength equal bilaterally - Psychiatric Psychiatric: appropriate mood/affect, intact judgment & insight - Neurologic Neurologic: CNII-XII intact, moves all extremities Plan Activity: no restrictions Diet: renal Follow up with: PRIMARY CARE, [Primary Care Provider] - 7 Days
[2018-03-31] MEDS ORDERED: NACL 0.9 (PRIMING MACHINE ONLY DIALYSIS) MC ONE (18:26)
[2018-03-31 20:38] VITALS: BP 172/90
== END 2018-03-31 20:30 | disposition home or self-care (01) | DRG 252 ==
LOC: CATHLABREC 10:37 → 3A 15:08
PROVIDERS: ADMIT Internal Medicine; ATTEND Internal Medicine
PROC: 03C80ZZ Extirpation of Matter from Left Brachial Artery, Open Approach (ICD-10-PCS; principal; 2018-03-27)
PROC: 05CC0ZZ Extirpation of Matter from Left Basilic Vein, Open Approach (ICD-10-PCS; 2018-03-27)
PROC: 5A1D70Z Performance of Urinary Filtration, Intermittent, Less than 6 Hours Per Day (ICD-10-PCS; 2018-03-27)
PROC: 5A1D70Z Performance of Urinary Filtration, Intermittent, Less than 6 Hours Per Day (ICD-10-PCS; 2018-03-28)
PROC: 057C3DZ Dilation of Left Basilic Vein with Intraluminal Device, Percutaneous Approach (ICD-10-PCS; 2018-03-31)
PROC: 057C3DZ Dilation of Left Basilic Vein with Intraluminal Device, Percutaneous Approach (ICD-10-PCS; 2018-03-31)
PROC: 03783ZZ Dilation of Left Brachial Artery, Percutaneous Approach (ICD-10-PCS; 2018-03-31)
PROC: B51W1ZZ Fluoroscopy of Dialysis Shunt/Fistula using Low Osmolar Contrast (ICD-10-PCS; 2018-03-31)
PROC: B5171ZZ Fluoroscopy of Left Subclavian Vein using Low Osmolar Contrast (ICD-10-PCS; 2018-03-31)
PROC: 3E06317 Introduction of Other Thrombolytic into Central Artery, Percutaneous Approach (ICD-10-PCS; 2018-03-31)
PROC: 3E04317 Introduction of Other Thrombolytic into Central Vein, Percutaneous Approach (ICD-10-PCS; 2018-03-31)
PROC: B31J1ZZ Fluoroscopy of Left Upper Extremity Arteries using Low Osmolar Contrast (ICD-10-PCS; 2018-03-31)
PROC: 5A1D70Z Performance of Urinary Filtration, Intermittent, Less than 6 Hours Per Day (ICD-10-PCS; 2018-03-31)
DX: T82.868A Thrombosis due to vascular prosthetic devices, implants and grafts, initial encounter (principal); N18.6 End stage renal disease; I13.11 Hypertensive heart and chronic kidney disease without heart failure, with stage 5 chronic kidney disease, or end stage renal disease; E87.5 Hyperkalemia; E66.9 Obesity, unspecified; Y83.8 Other surgical procedures as the cause of abnormal reaction of the patient, or of later complication, without mention of misadventure at the time of the procedure; Y92.89 Other specified places as the place of occurrence of the external cause; Z99.2 Dependence on renal dialysis; Z82.49 Family history of ischemic heart disease and other diseases of the circulatory system; Z88.0 Allergy status to penicillin; Z88.8 Allergy status to other drugs, medicaments and biological substances; Z79.899 Other long term (current) drug therapy; Z68.39 Body mass index [BMI] 39.0-39.9, adult
CPT/HCPCS: 36415; 36906; 80048; 84132; 85007; 85025; G0378; C1725; C1751; C1757; C1769; C1894; J0610; J1644; J2250; J2270; J2405; J2997; J3010; J7030; J7050; Q9967

== ENCOUNTER 2019-11-20 08:45 | Day surgery (SDC) | payer MEDICARE ==
[2019-11-20 10:18] LABS: Hematocrit 31.3 % (35.5-45.6); Hemoglobin 10.7 gm/dl (11.8-15.2); Mean Corpuscular HGB Conc 34 % (32-34); Mean Corpuscular Volume 86 fl (84-94); Platelet Count 237 K/mm3 (140-440); Red Blood Count 3.63 M/mm3 (3.65-5.03)
[2019-11-20 10:20] LABS: Red Cell Distribution Width 20.8 % (13.2-15.2)
[2019-11-20 10:39] LABS: Calcium 9.2 mg/dL (8.4-10.2)
--- NOTE | 2019-11-20 11:39 | Anesthesia Consultation ---
Anesthesia Consult and Med Hx Date of service: 11/20/19 - Airway Anesthetic Teeth Evaluation: Chipped ROM Head & Neck: Adequate Mental/Hyoid Distance: Adequate Mallampati Class: Class II Intubation Access Assessment: Probably Good - Pre-Operative Health Status ASA Pre-Surgery Classification: ASA3 Proposed Anesthetic Plan: General (Pt request; had attempted block before which didn't work) - Pulmonary Hx Smoking: Yes (former) Hx Asthma: No (+2FS) COPD: No Hx Pneumonia: No Hx Sleep Apnea: No (HIGH RISK) - Cardiovascular System Hx Hypertension: Yes (since 2016) Hx Heart Attack/AMI: No Hx Percutaneous Transluminal Coronary Angioplasty (PTCA): No Hx Pacemaker: No Hx Internal Defibrillator: No Hx Valvular Heart Disease: No Hx Heart Murmur: No Hx Peripheral Vascular Disease: No - Central Nervous System Hx Seizures: Yes (x1 only 08/2016) CVA: No Hx Psychiatric Problems: No - Endocrine Hx Renal Disease: Yes Hx End Stage Renal Disease: Yes (secondary to HTN) Hx Liver Disease: No Hx Non-Insulin Dependent Diabetes: No - Hematic Hx Anemia: Yes Hx Sickle Cell Disease: No - Other Systems Hx Alcohol Use: No Hx Substance Use: No Hx Cancer: No Hx Obesity: Yes
--- NOTE | 2019-11-20 11:39 | Anesthesia Day of Surgery ---
Anesthesia Day of Surgery - Day of Surgery Patient Examined: Yes Patient H&P Reviewed: Yes Patient is NPO: Yes Beta Blockers: Yes
[2019-11-20] MEDS ORDERED: SODIUM CHLORIDE 0.9% 1000 ML 1,000 ML IV SCH (11:45)
[2019-11-20 11:52] VITALS: BP 146/98
--- NOTE | 2019-11-20 13:19 | Event Note ---
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 His labs revealed hyperkalemia of 7.3. He performs home dialysis and has refused admission. He will be discharged home to perform dialysis and will be rescheduled for elective revision of his AV Fistula.
== END 2019-11-20 08:46 | disposition home or self-care (01) ==
LOC: OR 08:45
PROVIDERS: ATTEND Surgery Vascular Surgery
DX: I12.0 Hypertensive chronic kidney disease with stage 5 chronic kidney disease or end stage renal disease (principal); N18.6 End stage renal disease; K21.9 Gastro-esophageal reflux disease without esophagitis; Z53.8 Procedure and treatment not carried out for other reasons; E66.9 Obesity, unspecified; T82.868A Thrombosis due to vascular prosthetic devices, implants and grafts, initial encounter; Z99.2 Dependence on renal dialysis; Z87.891 Personal history of nicotine dependence; Z98.890 Other specified postprocedural states; Z91.013 Allergy to seafood; Z88.0 Allergy status to penicillin; Z79.899 Other long term (current) drug therapy; Z68.37 Body mass index [BMI] 37.0-37.9, adult; Z91.010 Allergy to peanuts; Z86.2 Personal history of diseases of the blood and blood-forming organs and certain disorders involving the immune mechanism; Z88.8 Allergy status to other drugs, medicaments and biological substances; Y82.8 Other medical devices associated with adverse incidents; Y92.89 Other specified places as the place of occurrence of the external cause
CPT/HCPCS: 36415; 80048; 84132; 85027

== ENCOUNTER 2019-12-01 05:56 | Day surgery (SDC) | payer MEDICARE ==
[2019-12-01] MEDS ORDERED: MIDAZOLAM 2 MG/2 ML INJ IV NR (06:00)
[2019-12-01] MEDS ORDERED: SODIUM CHLORIDE 0.9% 1000 ML 1,000 ML IV SCH (06:00)
[2019-12-01 07:11] LABS: Hematocrit 35.1 % (35.5-45.6); Hemoglobin 11.5 gm/dl (11.8-15.2); Mean Corpuscular HGB Conc 33 % (32-34); Mean Corpuscular Volume 86 fl (84-94); Platelet Count 205 K/mm3 (140-440); Red Cell Distribution Width 18.8 % (13.2-15.2)
[2019-12-01 07:22] LABS: Calcium 9.5 mg/dL (8.4-10.2)
--- NOTE | 2019-12-01 07:35 | Anesthesia Day of Surgery ---
Anesthesia Day of Surgery - Day of Surgery Patient Examined: Yes Patient H&P Reviewed: Yes Patient is NPO: Yes Beta Blockers: Yes
--- NOTE | 2019-12-01 07:35 | Anesthesia Consultation ---
Anesthesia Consult and Med Hx Date of service: 12/01/19 - Airway Anesthetic Teeth Evaluation: Good ROM Head & Neck: Adequate Mental/Hyoid Distance: Adequate Mallampati Class: Class III Intubation Access Assessment: Possibly Difficult (previous LMA 4) - Pulmonary Exam CTA: Yes - Cardiac Exam Cardiac Exam: RRR - Pre-Operative Health Status ASA Pre-Surgery Classification: ASA3 Proposed Anesthetic Plan: General - Pre-Anesthesia Comment Pre-Anesthesia Comments: Patient had previous failed regional block and prefers [place]. - Pulmonary Hx Smoking: Yes (former) Hx Respiratory Symptoms: No Hx Sleep Apnea: (HIGH RISK) - Cardiovascular System Hx Hypertension: Yes Hx Heart Attack/AMI: No Hx Percutaneous Transluminal Coronary Angioplasty (PTCA): No Hx Cardia Arrhythmia: No - Central Nervous System Hx Seizures: Yes (x1 only 08/2016) CVA: No - Gastrointestinal Hx Gastroesophageal Reflux Disease: No - Endocrine Hx End Stage Renal Disease: Yes (last HD 11/30/19; 2/2 HTN) Hx Liver Disease: No Hx Insulin Dependent Diabetes: No Hx Non-Insulin Dependent Diabetes: No Hx Thyroid Disease: No - Hematic Hx Anemia: Yes - Other Systems Hx Obesity: Yes (BMI 37) - Additional Comments Anesthesia Medical History Comments: Previously scheduled for procedure on 11/19 which was cancelled 2/2 hyperkalemia. No change in health since then. Will give home dose metoprolol in preop.
[2019-12-01] MEDS ORDERED: SUCCINYLCHOLINE CHLORIDE 200 MG/10 ML INJ MDV ONE (07:40)
[2019-12-01] MEDS ORDERED: fentaNYL 100 MCG/2 ML INJ ONE ×3 (07:40→10:50)
[2019-12-01] MEDS ORDERED: ONDANSETRON 4 MG/2 ML INJ ONE (07:40)
[2019-12-01] MEDS ORDERED: LIDOCAINE MPF (2%) 20 MG/1 ML VIAL 5 ML ONE (07:40)
[2019-12-01] MEDS ORDERED: PHENYLEPHRINE/NS 1,000 MCG/10 ML SYRINGE (OR USE) IV ONE (07:40)
[2019-12-01] MEDS ORDERED: dexAMETHasone 20 MG/5 ML VIAL ONE (07:40)
[2019-12-01] MEDS ORDERED: GLYCOPYRROLATE 0.4 MG/2 ML INJ ONE (07:40)
[2019-12-01] MEDS ORDERED: propofoL 200 MG/20 ML VIAL IV ONE (07:41)
[2019-12-01] MEDS ORDERED: BUPIVACAINE/PF (0.5%) 5 MG/1 ML 10 ML VIAL INFILTRATI ONE ×2 (07:47→08:42)
[2019-12-01] MEDS ORDERED: SODIUM CHLORIDE 0.9% 500 ML 500 ML ONE (07:47)
[2019-12-01] MEDS ORDERED: HEPARIN 10,000 UNITS/10 ML VIAL ONE (07:47)
[2019-12-01] MEDS ORDERED: METOPROLOL TARTRATE 50 MG TAB PO ONE (08:00)
[2019-12-01] MEDS ORDERED: ePHEDrine SULFATE 50 MG/1 ML INJ ONE (08:38)
[2019-12-01] MEDS ORDERED: HEPARIN 10,000 UNITS/10 ML VIAL IR ONE (08:43)
[2019-12-01] MEDS ORDERED: SODIUM CHLORIDE 0.9% 500 ML IVPB IRRIGATION ONE (08:44)
[2019-12-01] MEDS ORDERED: SODIUM CHLORIDE 0.9% IRR 1,500 ML BOTTLE IR ONE (08:44)
[2019-12-01] MEDS ORDERED: SODIUM CHLORIDE 0.9% 250ML 250 ML ONE (08:51)
[2019-12-01] MEDS ORDERED: rifAMPin 600 MG VIAL ONE (08:51)
[2019-12-01] MEDS ORDERED: SODIUM CHLORIDE 0.9% 250 ML IVPB IR ONE (09:02)
[2019-12-01] MEDS ORDERED: rifAMPin 600 MG VIAL IV ONE (09:02)
[2019-12-01] MEDS ORDERED: ALBUMIN HUMAN 5% (12.5 GM/250 ML) INJ IV ONE (09:35)
[2019-12-01] MEDS ORDERED: VASOPRESSIN 20 UNIT/1 ML INJ ONE (09:53)
[2019-12-01] MEDS ORDERED: MIDAZOLAM 2 MG/2 ML INJ ONE (11:24)
--- NOTE | 2019-12-01 11:42 | Short Stay Summary ---
Short Stay Documentation Date of service: 12/01/19 Narrative H&P: See H&P - History H&P: obtained from office - Allergies and Medications Current Medications: Allergies hydrocodone [From [place]] Allergy (Verified 11/18/19 13:10) Hives, swelling lisinopril Allergy (Unverified 11/18/19 13:10) Hives peanut Allergy (Verified 11/18/19 13:10) Hives, swelling shellfish derived Allergy (Verified 11/18/19 13:10) Hives, swelling Penicillins Adverse Reaction (Verified 11/18/19 13:10) Anaphylaxis contrast dye Allergy (Uncoded 11/18/19 13:10) Rash Home Medications Medication Instructions Recorded Confirmed Last Taken Type Isosorb Dinit/Hydralazine [Bidil 1 each PO TID #90 tablet 03/31/18 11/27/19 11/30/19 Rx 20/37.5MG] Metoprolol [Lopressor TAB] 50 mg PO BID #60 tablet 03/31/18 11/27/19 11/30/19 22:30 Rx Doxazosin [Cardura] 4 mg PO QDAY 11/18/19 11/27/19 11/30/19 History Pantoprazole [Protonix TAB] 20 mg PO QDAY 11/18/19 11/27/19 11/30/19 History Sevelamer HCl 800 mg PO TID 11/20/19 11/27/19 11/30/19 History Active Medications Sodium Chloride (Nacl 0.9% 1000 Ml) 1,000 mls @ 42 mls/hr IV DIRECT SIGIFREDO Stop: 12/01/19 23:59 Last Admin: 12/01/19 07:50 Dose: 42 mls/hr Documented by: Clindamycin HCl (Cleocin 900 Mg/50 Ml) 900 mg in 50 mls @ 100 mls/hr IV PREOP NR; Protocol Stop: 12/01/19 23:59 Midazolam HCl (Versed) 2 mg IV PREOP NR Stop: 12/01/19 23:00 Last Admin: 12/01/19 07:58 Dose: 2 mg Documented by: - Brief post op/procedure progress note Date of procedure: 12/01/19 Pre-op diagnosis: Complications of Dialysis Access Post-op diagnosis: same Procedure: 1. Revision of Left Arm Arteriovenous Fistula with Interposition 7 mm Bovine Artegraft Anesthesia: LUANNA Surgeon: THOMAS MANDUJANO Estimated blood loss: other (200 mL) Pathology: list (Left AV fistula pseudoaneurysm) Specimen disposition: to lab Condition: stable - Disposition Condition at discharge: Good Disposition: DC-01 TO HOME OR SELFCARE Short Stay Discharge Plan Activity: other (No heavy lifting with left arm) Wound: open to air, keep clean and dry, other (Okay to wash the wound with soap and water but do not soak in water for 2 weeks.) Follow up with: THOMAS MANDUJANO MD [Staff Physician] - 14 Days Prescriptions: oxyCODONE /ACETAMINOPHEN [Percocet 5/325] 1 tab PO Q4HR #40 tab
--- NOTE | 2019-12-01 11:43 | Operative Report ---
Operative Report Operative Report: Date of Procedure: 12/01/2019 Pre-operative Diagnosis: Complications of Dialysis Access Post-operative Diagnosis: Same Procedure(s): 1. Revision of Left Arm Arteriovenous Fistula with Interposition 7 mm Bovine Artegraft Surgeon: Elijah Adams M.D. Pick Pulling Machine Operator: None Anesthesia: General Endotracheal Anesthesia EBL: 200 mL Counts: Correct Complications: None Condition: Stable Findings: Successful revision of left arm arteriovenous fistula with palpable thrill at the completion of the case. Specimen: Left arm AV fistula pseudoaneurysm sent to pathology. Indication: The patient is a 39-year-old male with a history of end-stage renal disease who performs self cannulation for home dialysis. He has 2 enlarging pseudoaneurysms in the cannulation zone which limits where he is able to access his fistula. He is in need of revision of the fistula to assist with access. He was given the risks, benefits, and alternative procedures and consented to the procedure. Description of Procedure: The patient was brought to the operating room and laid in supine position. After timeout was performed his left arm was prepped and draped in normal sterile fashion. A longitudinal incision was made along the medial aspect of the midportion of his fistula and carried down to the arterial inflow of the fistula using sharp dissection. This portion of the fistula was dissected circumferentially and controlled with a vessel loop. The venous outflow portion of the fistula where the caliber of the fistula became normal was dissected circumferentially and controlled with a vessel loop. The pseudoaneurysms were then dissected circumferentially using curved Johnson's and once the entire midportion of the fistula, which included the pseudoaneurysms, had been dissected free the arterial inflow of the fistula as well as the venous outflow of the fistula were clamped with angled DeBakey clamps and the midportion of the fistula including the pseudoaneurysms was transected and passed off as a specimen. A Sherrell-Wick tunneler was then used to tunnel lateral to the fistula and a 7 mm bovine Artegraft was connected to the tunneler and pulled through the tunnel. The graft was then clamped near the arterial inflow and infused with heparinized saline to a ensure that it had not kinked or twisted. Once this was confirmed the arterial inflow portion of the graft was beveled and an end-to-end anastomosis was created between the graft and the arterial inflow end of the fistula using two 6-0 Prolene in a running fashion. Once this was completed the outflow of the graft was clamped and the clamp was removed from the arterial inflow the fistula to confirm hemostasis of the arterial anastomosis. Once hemostasis was confirmed the graft was clamped just distal to the anastomosis. The graft was then cut to length and beveled near the venous outflow and an end-to-end anastomosis was created with the venous outflow of the fistula using two 6-0 Prolene in a running fashion. Prior to completing the anastomosis the venous outflow of the fistula as well as the graft for flashed of any debris or thrombus and then reclamped and the graft was flushed with heparinized saline. The anastomosis was completed and all clamps were removed allowing flow into the graft which had a palpable thrill. Hemostasis within the wound was achieved with a combination of quick clot and cautery. Once hemostasis was achieved the redundant skin from the pseudoaneurysms was resected and the wound was anestheti zed with 0.5% Marcaine. The wound was then closed in 2 layers using 3-0 Vicryl in running fashion in the deep dermal layer and 4-0 Monocryl in running fashion the subcuticular layer and then dressed with Dermabond. The patient tolerated the procedure well. All sponge, needle, and instrument counts were correct. The patient was taken to the recovery area in stable condition.
--- NOTE | 2019-12-01 14:12 | Post Anesthesia Evaluation ---
- Post Anesthesia Evaluation Patient Participated: Yes Airway Patent: Yes Stable Respiratory Function: Yes Nausea/Vomiting: No Temp > 96.8F: Yes Pain Manageable: Yes Adequeate Hydration: Yes Anesthesia Complications: No
[2019-12-01 15:53] VITALS: BP 123/67
== END 2019-12-01 05:57 | disposition home or self-care (01) ==
LOC: OR 05:56
PROVIDERS: ATTEND Surgery Vascular Surgery
DX: T82.898A Other specified complication of vascular prosthetic devices, implants and grafts, initial encounter (principal); T82.868A Thrombosis due to vascular prosthetic devices, implants and grafts, initial encounter; I12.0 Hypertensive chronic kidney disease with stage 5 chronic kidney disease or end stage renal disease; N18.6 End stage renal disease; G47.30 Sleep apnea, unspecified; K21.9 Gastro-esophageal reflux disease without esophagitis; E66.9 Obesity, unspecified; D64.9 Anemia, unspecified; Z98.890 Other specified postprocedural states; Z91.013 Allergy to seafood; Z68.37 Body mass index [BMI] 37.0-37.9, adult; Z88.0 Allergy status to penicillin; Z79.899 Other long term (current) drug therapy; Z88.8 Allergy status to other drugs, medicaments and biological substances; Y82.8 Other medical devices associated with adverse incidents; Y92.89 Other specified places as the place of occurrence of the external cause
CPT/HCPCS: 36415; 36832; 80048; 85027; 88304; C1757; C1768; J0330; J1100; J1644; J2250; J2370; J2405; J2704; J3010; J3490; J7030; J7040; J7050; P9045

== ENCOUNTER 2021-04-18 06:03 | Day surgery (SDC) | payer MEDICARE ==
[2021-04-18] MEDS ORDERED: SODIUM CHLORIDE 0.9% 1000 ML 1,000 ML ONE ×2 (06:50→06:55)
[2021-04-18 06:56] LABS: Mean Corpuscular HGB Conc 30 % (32-34); Mean Corpuscular Volume 90 fl (84-94); Platelet Count 233 K/mm3 (140-440); Red Cell Distribution Width 18.2 % (13.2-15.2)
[2021-04-18 06:58] LABS: Hematocrit 31.3 % (35.5-45.6); Hemoglobin 9.4 gm/dl (11.8-15.2)
[2021-04-18 07:09] LABS: Calcium 8.6 mg/dL (8.4-10.2)
[2021-04-18] MEDS ORDERED: propofoL 200 MG/20 ML VIAL IV ONE (07:26)
[2021-04-18] MEDS ORDERED: LIDOCAINE MPF (2%) 20 MG/1 ML VIAL 5 ML ONE (07:26)
[2021-04-18] MEDS ORDERED: fentaNYL 100 MCG/2 ML INJ ONE ×2 (07:26→09:43)
--- NOTE | 2021-04-18 07:35 | Anesthesia Consultation ---
Anesthesia Consult and Med Hx Date of service: 04/18/21 - Airway Anesthetic Teeth Evaluation: Good ROM Head & Neck: Adequate Mental/Hyoid Distance: Adequate Mallampati Class: Class III Intubation Access Assessment: Possibly Difficult (previous LMA 4) - Pre-Operative Health Status ASA Pre-Surgery Classification: ASA3 Proposed Anesthetic Plan: General - Pulmonary Hx Smoking: No Hx Respiratory Symptoms: No Hx Sleep Apnea: (HIGH RISK) - Cardiovascular System Hx Hypertension: Yes (took metoprolol this morning) Hx Heart Attack/AMI: No Hx Percutaneous Transluminal Coronary Angioplasty (PTCA): No - Central Nervous System CVA: No Hx Psychiatric Problems: Yes - Endocrine Hx End Stage Renal Disease: Yes (last HD 04/17/21) Hx Liver Disease: No Hx Insulin Dependent Diabetes: No Hx Non-Insulin Dependent Diabetes: No Hx Thyroid Disease: No - Hematic Hx Anemia: Yes - Additional Comments Anesthesia Medical History Comments: No hx anesthetic complications.
--- NOTE | 2021-04-18 07:36 | Anesthesia Day of Surgery ---
Anesthesia Day of Surgery - Day of Surgery Patient Examined: Yes Patient H&P Reviewed: Yes Patient is NPO: Yes Beta Blockers: Yes (metoprolol today AM)
[2021-04-18] MEDS ORDERED: BUPIVACAINE/PF (0.5%) 5 MG/1 ML 30 ML VIAL INFILTRATI ONE ×2 (07:44→10:26)
[2021-04-18] MEDS ORDERED: LIDOCAINE (1%) 10 MG/1 ML VIAL 20 ML MDV ONE (07:44)
[2021-04-18] MEDS ORDERED: SODIUM CHLORIDE P/F VIAL 10 ML 10 ML ONE (07:45)
[2021-04-18] MEDS ORDERED: SODIUM CHLORIDE 0.9% 500 ML 500 ML ONE (07:45)
[2021-04-18] MEDS ORDERED: rifAMPin 600 MG VIAL ONE (07:45)
[2021-04-18] MEDS ORDERED: HEPARIN 10,000 UNITS/10 ML VIAL ONE (07:45)
[2021-04-18] MEDS ORDERED: SODIUM CHLORIDE 0.9% 250ML 250 ML ONE (07:46)
[2021-04-18] MEDS ORDERED: SODIUM CHLORIDE 0.9% 1000 ML 1,000 ML IV SCH (08:00)
[2021-04-18] MEDS ORDERED: MIDAZOLAM 2 MG/2 ML INJ IV NR (08:00)
[2021-04-18] MEDS ORDERED: ONDANSETRON 4 MG/2 ML INJ IV PRN (08:00)
[2021-04-18] MEDS ORDERED: oxyCODONE /ACETAMINOPHEN 5-325MG TAB PO PRN (08:00)
[2021-04-18] MEDS ORDERED: fentaNYL 100 MCG/2 ML INJ IV PRN (08:30)
[2021-04-18] MEDS ORDERED: ePHEDrine SULFATE 50 MG/1 ML INJ ONE (09:05)
[2021-04-18] MEDS ORDERED: ONDANSETRON 4 MG/2 ML INJ ONE (09:07)
[2021-04-18] MEDS ORDERED: dexAMETHasone 20 MG/5 ML VIAL ONE (09:07)
[2021-04-18] MEDS ORDERED: PHENYLEPHRINE/NS 1,000 MCG/10 ML SYRINGE (OR USE) IV ONE (09:10)
[2021-04-18] MEDS ORDERED: VASOPRESSIN 20 UNIT/1 ML INJ ONE (10:23)
[2021-04-18] MEDS ORDERED: HEPARIN 10,000 UNITS/10 ML VIAL IV ONE (10:25)
[2021-04-18] MEDS ORDERED: rifAMPin 600 MG VIAL IV ONE (10:26)
[2021-04-18] MEDS ORDERED: SODIUM CHLORIDE 0.9% P/F 10 ML VIAL INFILTRATI ONE (10:26)
[2021-04-18] MEDS ORDERED: SODIUM CHLORIDE 0.9% IRR 500 ML BOTTLE IR ONE (10:29)
--- NOTE | 2021-04-18 11:08 | Short Stay Summary ---
Short Stay Documentation Date of service: 04/18/21 Narrative H&P: See H&P - History H&P: obtained from office - Allergies and Medications Current Medications: Allergies amoxicillin Allergy (Verified 04/14/21 15:06) Swelling, HIVES hydrocodone [From [place]] Allergy (Verified 04/14/21 15:06) Hives, swelling, hands peel Iodinated Contrast Media Allergy (Verified 04/14/21 15:06) Rash lisinopril Allergy (Verified 04/14/21 15:06) Hives, swellling peanut Allergy (Verified 04/14/21 15:06) Hives, swelling shellfish derived Allergy (Verified 04/14/21 15:06) Hives, swelling Penicillins Adverse Reaction (Intermediate, Verified 04/14/21 15:06) Anaphylaxis Home Medications Medication Instructions Recorded Confirmed Last Taken Type Sevelamer HCl 800 mg PO TID 11/20/19 04/18/21 04/17/21 18:30 History Cinacalcet [Sensipar] 30 mg PO DAILY 02/07/21 04/18/21 04/17/21 09:00 History Aspirin 325 mg PO QDAY 04/14/21 04/18/21 04/04/21 09:00 History Doxazosin [Cardura] 4 mg PO QDAY 04/14/21 04/18/21 04/17/21 21:00 History Metoprolol [Lopressor] 100 mg PO BID 04/14/21 04/18/21 04/18/21 05:00 History calcitrioL [Rocaltrol] 0.25 mcg PO DAILY 04/14/21 04/18/21 04/17/21 09:00 History Active Medications Fentanyl (Fentanyl 100 Mcg/2 Ml Inj) 50 mcg IV Q5MIN PRN PRN Reason: Pain , Severe (7-10) Stop: 04/18/21 17:00 Clindamycin HCl (Cleocin 900 Mg/50 Ml) 900 mg in 50 mls @ 100 mls/hr IV PREOP NR; Protocol Stop: 04/18/21 20:00 Sodium Chloride (Nacl 0.9% 1000 Ml) 1,000 mls @ 42 mls/hr IV DIRECT SIGIFREDO Stop: 04/18/21 18:00 Last Admin: 04/18/21 08:00 Dose: 42 mls/hr Midazolam HCl (Midazolam 2 Mg/2 Ml Inj) 2 mg IV PREOP NR Stop: 04/18/21 21:00 Ondansetron HCl (Ondansetron 4 Mg/2 Ml Inj) 4 mg IV ONCE PRN PRN Reason: Nausea And Vomiting Stop: 04/18/21 17:00 Oxycodone/Acetaminophen (Oxycodone /Acetaminophen 5-325mg Tab) 1 tab PO ONCE PRN PRN Reason: Pain, Moderate (4-6) Stop: 04/18/21 17:00 - Brief post op/procedure progress note Date of procedure: 04/18/21 Pre-op diagnosis: Complications of Dialysis Access Post-op diagnosis: same Procedure: 1. Revision of Left Arm Arteriovenous Graft with Excision of Pseudoaneurysm and Repair with a 7 mm Bovine Artegraft Anesthesia: GETA Surgeon: THOMAS MANDUJANO Estimated blood loss: other (150ml) Pathology: list (Left arm arteriovenous graft pseudoaneurysm was sent to pathology) Specimen disposition: to lab Condition: stable - Disposition Condition at discharge: Good Disposition: 01 HOME / SELF CARE / HOMELESS Short Stay Discharge Plan Activity: other (No heavy lifting with left arm for 2 weeks.) Wound: remove dressing (In 48 hours), other (After removing the dressing it is okay to shower and wash the wound with soap and water but do not soak in water for 2 weeks.) Follow up with: THOMAS MANDUJANO MD [Staff Physician] - 14 Days Prescriptions: oxyCODONE /ACETAMINOPHEN [Percocet 5/325 mg] 1 tab PO ONCE PRN #30 tablet PRN Reason: Pain, Moderate (4-6)
--- NOTE | 2021-04-18 11:15 | Operative Report ---
Operative Report Operative Report: Date of Procedure: 04/18/2021 Pre-operative Diagnosis: Complications of Dialysis Access Post-operative Diagnosis: Same Procedure(s): 1. Revision of Left Arm Arteriovenous Graft with Excision of Pseudoaneurysm and Repair with an Interposition 7 mm Bovine Artegraft Surgeon: Elijah Adams M.D. Esthetician Permanent Makeup Artist: None Anesthesia: General Endotracheal Anesthesia EBL: 150 mL Counts: Correct Complications: None Condition: Stable Findings: The posterior wall of the graft was completely disrupted with a >50% defect. The graft was unable to be repaired, primarily, and required partial excision with repair with an interposition graft. Specimen: Left arm AVG pseudoaneurysm was sent to pathology. Indication: The patient is a 41-year-old male with a history of end-stage renal disease who is on hemodialysis through a left arm arteriovenous graft. He developed a pseudoaneurysm, in the cannulation zone, with rapid expansion that was concerning for rupture secondary to thinning of the overlying skin. He is in need of revision with excision of the pseudoaneurysm to prevent rupture. He was given the risk, benefits, and alternative procedures and consented to the procedure. Description of Procedure: The patient was brought to the operating room and laid in supine position. After general endotracheal anesthesia was achieved his left arm was prepped and draped in normal sterile fashion. A longitudinal incision was created on the medial aspect of the graft extending from just distal and just proximal to the area of pseudoaneurysm. I used sharp dissection to dissect around the pseudoaneurysm however despite my best efforts I inadvertently entered the pseudoaneurysm secondary to an immature capsule. I used digital pressure through the pseudoaneurysm to control hemorrhage and at that time it became obvious that the posterior wall of the graft had been completely disrupted. I was able to dissect several centimeters of the arterial inflow as well as several centimeters of the venous outflow of the graft and control both ends with angled DeBakey clamps. At this point I systemically heparinized the patient with 3000 as of heparin IV. I then resected the damaged portion of the graft as well as using sharp dissection to resect the capsule of the pseudoaneurysm. I then used a 7 mm bovine Artegraft and beveled the arterial inflow end of the graft. I created an end-to-end anastomosis using two 5-0 Prolene's in running fashion. I then clamped the new graft just distal to the a nastomosis and released the clamp from the indwelling graft. Upon releasing the clamp on the graft there was clearly no flow so I passed a 6 Génesis down into the graft and made several passes into there was no additional thrombus and adequate arterial flow to the graft. I reclamped the graft and cut it to length including beveling the venous outflow end of the graft. I created an end-to-end anastomosis between the new graft and indwelling graft using two 5-0 Prolene in running fashion. Prior to completing the anastomosis I move the DeBakey clamp from the venous outflow of the indwelling graft and there was no venous backbleeding. I made several passes with a 6 Génesis until there was no additional thrombus and adequate backbleeding. I then flushed the venous outflow with heparinized saline and reclamped the graft. I completed the anastomosis and removed all clamps allowing flow through the graft which had a palpable thrill. Hemostasis within the wound was achieved with a combination of cautery, manual pressure, and quick clot. I then used a 10 blade to make an elliptical incision around a small defect in the skin overlying the arterial inflow of the graft. I carried this down to the dermis using sharp dissection and then created flaps to allow for closure of the incision. I anesthetized both wounds with 0.5% Marcaine and then closed in both in 2 layers using 3-0 Hema ryl in running fashion the deep dermal layer and 4-0 Monocryl in running fashion subcuticular. I then applied angelica to the incision overlying the arterial inflow the graft. I used Dermabond to cover the upper arm incision. I applied angelica to the lower incision to adequately approximate the skin and then used a fluff and Tegaderm to cover the distal incision. The patient tolerated the procedure well. All sponge, needle, and instrument counts were correct. The patient was taken to the recovery area in stable condition.
[2021-04-18 14:13] VITALS: BP 113/68
[2021-04-25] MEDS ORDERED: ceFAZolin/STERILE WATER 2 GM/20 ML SYRINGE IV NR (06:00)
== END 2021-04-18 12:50 | disposition home or self-care (01) ==
LOC: OR 06:03
PROVIDERS: ATTEND Surgery Vascular Surgery
DX: T82.898A Other specified complication of vascular prosthetic devices, implants and grafts, initial encounter (principal); T82.868A Thrombosis due to vascular prosthetic devices, implants and grafts, initial encounter; I12.0 Hypertensive chronic kidney disease with stage 5 chronic kidney disease or end stage renal disease; G47.30 Sleep apnea, unspecified; N18.6 End stage renal disease; K21.9 Gastro-esophageal reflux disease without esophagitis; Z98.890 Other specified postprocedural states; Z88.8 Allergy status to other drugs, medicaments and biological substances; Z79.899 Other long term (current) drug therapy; Z91.013 Allergy to seafood; Z88.0 Allergy status to penicillin; Z91.010 Allergy to peanuts; Y82.8 Other medical devices associated with adverse incidents; Y92.89 Other specified places as the place of occurrence of the external cause
CPT/HCPCS: 36415; 36832; 80048; 85027; 86850; 86900; 86901; 88304; 88311; J1100; J1644; J2370; J2405; J2704; J3010; J3490; J7030; J7040; J7050; J7502; U0003; J7120; Q0162; C1757; C1768

== ENCOUNTER 2021-11-27 09:42 | Observation (INO) | payer MEDICARE ==
[2021-11-27] MEDS ORDERED: diphenhydrAMINE 50 MG/ML VIAL IV ONE (11:06)
[2021-11-27] MEDS ORDERED: methylPREDNISolone Sod Succinate 125 MG/2 ML INJ IV ONE (11:06)
[2021-11-27] MEDS ORDERED: FAMOTIDINE 20 MG/2 ML INJ IV ONE (11:08)
[2021-11-27] MEDS ORDERED: LIDOCAINE (2%) 20 MG/1 ML VIAL 20 ML MDV INFILTRATI ONE (11:23)
[2021-11-27] MEDS ORDERED: HEPARIN/NS 5000 UNIT/500ML 500 ML IR ONE ×3 (11:23→13:51)
[2021-11-27] MEDS ORDERED: LIDOCAINE 1%/EPINEPHRINE 1:100,000 VIAL (20 ML) INFILTRATI ONE (11:25)
[2021-11-27] MEDS: SODIUM CHLORIDE 0.9% 500 ML 500 ML IV SCH ×2 (11:34→12:54)
[2021-11-27] MEDS ORDERED: ALTEPLASE 2 MG INJ ONE ×2 (12:15→13:44)
[2021-11-27] MEDS ORDERED: WATER FOR INJ Sterile (PF) 10 ML ONE (12:20)
[2021-11-27] MEDS: hydrALAZINE 20 MG/1 ML INJ ONE ×2 (12:24→12:39)
[2021-11-27] MEDS: HEPARIN 10,000 UNITS/10 ML VIAL ONE ×2 (12:27→13:39)
[2021-11-27] MEDS ORDERED: hydrALAZINE 20 MG/1 ML INJ ONE (12:50)
[2021-11-27] MEDS: fentaNYL 100 MCG/2 ML INJ ONE ×2 (13:48→14:00)
[2021-11-27] MEDS: MIDAZOLAM 2 MG/2 ML INJ ONE ×2 (13:48→14:00)
[2021-11-27] MEDS ORDERED: MIDAZOLAM 2 MG/2 ML INJ ONE (14:24)
[2021-11-27] MEDS ORDERED: fentaNYL 100 MCG/2 ML INJ ONE (14:25)
[2021-11-27] MEDS ORDERED: ALBUTEROL 2.5 MG/3 ML NEBU IH PRN (15:00)
[2021-11-27] MEDS ORDERED: ACETAMINOPHEN 325 MG TAB PO PRN (15:00)
[2021-11-27] MEDS ORDERED: oxyCODONE /ACETAMINOPHEN 5-325MG TAB PO PRN (15:00)
[2021-11-27] MEDS ORDERED: HYDROmorphone 0.5 MG/0.5 ML INJ IV PRN (15:00)
[2021-11-27] MEDS ORDERED: ONDANSETRON 4 MG/2 ML INJ IV PRN (15:00)
--- NOTE | 2021-11-27 15:00 | History and Physical Report ---
History of Present Illness Chief complaint: I cannot get dialysis History of present illness: 41 YO Male with ESRD on HD at Home(T,R,Sa), HTN, Obesity admitted directly from [facility]PPU. Patient reports "I cannot get dialysis". Pt found to have clotted dialysis access and was unable to have his routine scheduled dialysis dialysis. Pt seen and evaluated and underwent permacath placement. Pt seen and evaluated and found to have ESRD. Nephrology consulted for urgent dialysis, IR consulted to clotted AV fistula. Pt denies fever, chills, CP, Palptiations, NVD, shortness of breath, skin rash, or recent ill contacts, known exposure to COVID-19. Prior admission on 03/27/2018 reviewed. All medication listed at time of admission has been reconciled. Advanced care planning conducted. Past History Past Medical History: ESRD, hypertension Past Surgical History: Other (Dialysis access) Social history: , lives with family. denies: smoking, alcohol abuse, prescription drug abuse Family history: hypertension Medications and Allergies Allergies Allergy/AdvReac Type Severity Reaction Status Date / Time amoxicillin Allergy Swelling, Verified 04/14/21 15:06 HIVES hydrocodone [From [place]] Allergy Hives, Verified 04/14/21 15:06 swelling, hands peel Iodinated Contrast Media Allergy Rash Verified 04/14/21 15:06 lisinopril Allergy Hives, Verified 04/14/21 15:06 swellling peanut Allergy Hives, Verified 04/14/21 15:06 swelling Penicillins AdvReac Intermediate Anaphylaxis Verified 04/14/21 15:06 Home Medications Medication Instructions Recorded Confirmed Last Taken Type Sevelamer HCl 800 mg PO TID 11/20/19 04/18/21 04/17/21 18:30 History Cinacalcet [Sensipar] 30 mg PO DAILY 02/07/21 04/18/21 04/17/21 09:00 History Aspirin 325 mg PO QDAY 04/14/21 04/18/21 04/04/21 09:00 History Doxazosin [Cardura] 4 mg PO QDAY 04/14/21 04/18/21 04/17/21 21:00 History Metoprolol [Lopressor TAB] 100 mg PO BID 04/14/21 04/18/21 04/18/21 05:00 History calcitrioL [Rocaltrol] 0.25 mcg PO DAILY 04/14/21 04/18/21 04/17/21 09:00 History oxyCODONE /ACETAMINOPHEN [Percocet 1 tab PO ONCE PRN #30 tablet 04/18/21 Unknown Rx 5/325 mg] Active Meds: Active Medications Sodium Chloride (Nacl 0.9% 500 Ml) 500 mls @ 50 mls/hr IV DIRECT SIGIFREDO Last Admin: 11/27/21 12:54 Dose: 50 mls/hr Review of Systems Constitutional: no weight loss, no weight gain, no chills, no sweats Ears, nose, mouth and throat: no ear pain, no decreased hearing, no nose pain, no nasal discharge, no sinus pressure Cardiovascular: no chest pain, no orthopnea, no rapid/irregular heart beat, no lightheadedness Respiratory: no cough, no cough with sputum, no hemoptysis, no shortness of breath Gastrointestinal: no abdominal pain, no vomiting, no constipation, no change in bowel habits Genitourinary Male: no hematuria, no flank pain, no discharge, no urinary frequency, no urinary hesitancy Rectal: no pain, no incontinence, no bleeding Musculoskeletal: no neck pain, no arm numbness/tingling, no low back pain, no shooting leg pain Integumentary: no rash, no redness, no wounds Neurological: no head injury, no transient paralysis, no parathesias, no tingling, no tremors, no ataxia Psychiatric: no anxiety, no sleep disturbances, no hypersomnia, no change in libido, no suicidal ideation, no disorientation Endocrine: no cold intolerance, no heat intolerance, no polydipsia, no polyuria, no nocturia, no flushing Hematologic/Lymphatic: no easy bruising, no easy bleeding Allergic/Immunologic: no urticaria, no allergic rhinitis Exam - Constitutional Vitals: Temp Pulse Resp BP Pulse Ox 100 11/27/21 10:52 General appearance: Present: mild distress, obese - EENT Eyes: Present: PERRL ENT: hearing intact, clear oral mucosa - Neck Neck: Present: supple, normal ROM - Respiratory Respiratory effort: normal Respiratory: bilateral: CTA - Cardiovascular Heart Sounds: Present: S1 & S2. Absent: rub, click - Extremities Extremities: pulses symmetrical, No edema Peripheral Pulses: within normal limits - Abdominal General gastrointestinal: Present: soft, non-tender, non-distended, normal bowel sounds Male genitourinary: Present: normal - Integumentary Integumentary: Present: clear, warm, dry - Musculoskeletal Musculoskeletal: gait normal, strength equal bilaterally - Psychiatric Psychiatric: appropriate mood/affect, intact judgment & insight - Neurologic Neurologic: CNII-XII intact, moves all extremities Results - Labs CBC & Chem 7: 11/27/21 10:15 Labs: Abnormal lab results 11/27/21 Range/Units 10:15 Potassium 6.3 H* (3.6-5.0) mmol/L Assessment and Plan - Patient Problems (1) Dialysis catheter clot or failure Current Visit: No Status: Acute Plan to address problem: Vascular surgery consulted. Patient taken to the operating room for surgical intervention, supportive care. Patient initiated on therapeutic anticoagulation as per interventional radiology recommendations. (2) ESRD (end stage renal disease) on dialysis Current Visit: No Status: Acute Plan to address problem: Nephrology team consulted. Urgent dialysis as per renal team. Supportive care. (3) Fluid overload Current Visit: Yes Status: Acute Qualifiers: Hypervolemia type: unspecified Qualified Code(s): E87.70 - Fluid overload, unspecified Plan to address problem: Urgent dialysis, supportive care. (4) Hyperkalemia Current Visit: Yes Status: Acute Plan to address problem: Calcium gluconate, Kayexalate, BMP, repeat BMP, supportive care. (5) Metabolic acidosis Current Visit: No Status: Acute Plan to address problem: Supportive care, urgent dialysis. Repeat BMP in AM. (6) DVT prophylaxis Current Visit: Yes Status: Acute Plan to address problem: SCD to bilateral lower extremities while in bed (7) Advance care planning Current Visit: Yes Status: Acute Plan to address problem: Disease education data, care plan discussed, diagnoses discussed, prognosis discussed, patient is full code. Patient acknowledges understanding and agreement with care plan, +30 minutes. (8) Preventative health care Current Visit: Yes Status: Acute Plan to address problem: Patient counseled regarding risk factor reduction, renal diet, increase physical activity, meal planning, outpatient follow-up with primary care physician for all age and risk factor appropriate screening test. +30 minutes.
--- NOTE | 2021-11-27 15:05 | Post Operative Note ---
Date of procedure: 11/27/21 Pre-op diagnosis: AV graft occlusion Post-op diagnosis: same Procedure: 1. Ultrasound-guided access of the left arm AV graft towards the venous anastomosis 2. Fistulogram. 3. Infusion of 2 mg of tPA throughout the AV graft. 4. Angioplasty throughout the subclavian vein, axillary vein, and graft with a 9 mm x 80 mm angioplasty balloon 5. Thrombectomy of the AV graft, subclavian vein, and axillary vein with a 6 [place] AngioJet 6. Génesis thrombectomy from the sheath to the central veins performed multiple times 7. Ultrasound-guided access of the left arm AV graft towards the arterial anastomosis 8. Selection of the brachial artery in a retrograde fashion with angiography of the left upper extremity. 9. Génesis thrombectomy from the brachial artery to the venous sheath multiple times 10. Génesis thrombectomy, AngioJet, and repeated angioplasty of the subclavian vein, axillary vein, AV graft 11. Angioplasty of the distal subclavian vein with a 10 mm x 40 mm angioplasty balloon 12. Angioplasty of the subclavian vein, axillary vein, and AV graft with an 8 mm x 80 mm and 9 mm x 80 mm angioplasty balloon Anesthesia: local (With conscious sedation) Surgeon: JOYCE CORONADO Estimated blood loss: 50-100ml (From thrombectomy equipment) Condition: stable Disposition: floor
--- NOTE | 2021-11-27 15:06 | Operative Report ---
Operative Report Operative Report: EXAM: 1. Ultrasound-guided access of the left arm AV graft towards the venous anastomosis 2. Fistulogram. 3. Infusion of 2 mg of tPA throughout the AV graft. 4. Angioplasty throughout the subclavian vein, axillary vein, and graft with a 9 mm x 80 mm angioplasty balloon 5. Thrombectomy of the AV graft, subclavian vein, and axillary vein with a 6 [place] AngioJet 6. Génesis thrombectomy from the sheath to the central veins performed multiple times 7. Ultrasound-guided access of the left arm AV graft towards the arterial anastomosis 8. Selection of the brachial artery in a retrograde fashion with angiography of the left upper extremity. 9. Génesis thrombectomy from the brachial artery to the venous sheath multiple times 10. Génesis thrombectomy, AngioJet, and repeated angioplasty of the subclavian vein, axillary vein, AV graft 11. Angioplasty of the distal subclavian vein with a 10 mm x 40 mm angioplasty balloon 12. Angioplasty of the subclavian vein, axillary vein, and AV graft with an 8 mm x 80 mm and 9 mm x 80 mm angioplasty balloon INDICATION: THROMBOSED LEFT ARM AV GRAFT WITH END-STAGE RENAL DISEASE. DATE: 11/27/2021 MEDICATIONS: Please refer to nursing documentation for complete list of medications and heparin administration. Although the patient was first given local, due to anxiety, moderate sedation was initiated. Patient has been n.p.o. since the night before. This was discussed with patient who agreed. VERSED AND FENTANYL TITRATED TO MODERATE SEDATION. THE PATIENT WAS MONITORED UNDER CONTINUOUS CARDIOPULMONARY MONITORING THROUGHOUT THE CASE. COMPLICATIONS: NONE IMMEDIATE TOE PUNCHER: JOYCE CORONADO MD PROCEDURE: The procedure was discussed with the patient and the risks, benefits, and alternatives were discussed with the patient. Informed consent was obtained. The patient was transported into the angiography suite in stable condition and placed on the angiographic table. The left arm was assessed under real-time ultrasound which demonstrated a thrombosed left arm AV graft. The patient was prepped and draped in a sterile fashion. Lidocaine was used to anesthetize the skin. Under ultrasound guidance, the AV graft was punctured with the needle pointing towards the venous limb. 0.018 inch wire was advanced through the needle and this was exchanged for a transitional dilator. The inner dilator and wire were removed and a 0.035 inch Perez wire was advanced through the transitional dilator. The dilator was exchanged for a 7 [place] short sheath. Angled catheter was advanced over the wire and the wire was advanced into the inferior vena cava under fluoroscopic guidance. Then the wire was removed and the Angled catheter was used to perform a pullback venogram. Digital subtraction venography was performed in the left brachiocephalic vein which demonstrated no central obstruction to flow. There is occlusion of the AV graft, full metal jacket/stented axillary vein and stented subclavian vein. The left innominate vein and SVC are patent. The catheter was pulled back until clot was encountered. 2 mg of TPA were infused through the length of the clot to the sheath as the arterial anastomosis was manually compressed. Angled catheter and Perez wire were negotiated into the inferior vena cava. Catheter was exchanged for an 9 mm x 8 cm balloon and the left subclavian vein, axillary vein, and AV graft had venous plasty performed on. AngioJet thrombectomy device was used multiple times through the venous limb. AngioJet device was then removed. The Génesis balloon was used to sweep from the sheath to the central veins. The arm was then punctured towards the arterial anastomosis under ultrasound guidance. 0.018 inch wire was advanced through the needle and exchanged for transitional dilator. The inner dilator and wire were removed and a 0.035 inch Perez wire was advanced to the transitional dilator. The dilator was exchanged for 6 Sudanese short sheath. The angled catheter was advanced over the 0.035 wire and the wire was advanced into the torres martinez brachial artery in a retrograde fashion. Digital subtraction angiography was performed which demonstrated patency of the brachial artery proximal and distal to the anastomosis with flow-limiting thrombus in the periphery of the AV graft. The mid and central portion of the graft were patent. Génesis catheter was inflated and use to sweep the anastomosis multiple times, pulling the plug towards the venous limb. Blood was aspirated from both sheaths. Génesis catheter was exchanged for the angled catheter and digital subtraction angiography was performed. This demonstrated thrombus within the graft. Repeated AngioJet, Génesis thrombectomy push from the venous sheath, Génesis thrombectomy pulls from the arterial sheath, and repeated AngioJet thrombectomy was performed. 10 mm x 40 mm angioplasty balloon was used to perform angioplasty in the left subclavian vein, an 8 mm x 80 mm and 9 mm x 80 mm angioplasty balloon was used to perform angioplasty within the AV graft, axillary vein, and subclavian vein. Ultimately, the brachial artery was selected again in a retrograde fashion and digital subtraction angiography demonstrated a small amount of nonflow-limiting thrombus within the periphery of the AV graft with patency of the rest of the graft. There was a strong thrill. All the wires were removed. 4-0 Vicryl sutures were used to close the fistula access sites. Dermabond was applied. Pressure was held until hemostasis was achieved. The patient was then transferred to the outpatient recovery area. FINDINGS: Please see the procedure note for the findings. IMPRESSION: 1. Successful pharmacomechanical thrombectomy of the thrombosed left AV graft. 2. Successful peripheral dialysis access and central dialysis access angioplasty. PLAN: Due to extensive nature of thrombus, initiated patient on low-dose Eliquis 2.5 p.o. twice daily. This should be to help prevent future thrombotic events. Patient reports he had a seizure in the past, but this was at the time of his initiation of dialysis from uremia. He has not had a seizure since. Risk, benefits, and alternatives discussed with patient, patient agreed with plan. Proper use of anticoagulation discussed with patient. Patient will be admitted for hyperkalemia. Okay to use left arm graft access for dialysis.
--- NOTE | 2021-11-27 15:08 | Short Stay Summary ---
Short Stay Documentation Date of service: 11/27/21 Narrative H&P: 41-year-old male with past medical history of ADHD, seizures from original uremic event from hemodialysis (none since), end-stage renal disease on HD (home hemodialysis), who presents for AV graft thrombectomy and possible PermCath placement. - Allergies and Medications Current Medications: Allergies amoxicillin Allergy (Verified 04/14/21 15:06) Swelling, HIVES hydrocodone [From [facility]] Allergy (Verified 04/14/21 15:06) Hives, swelling, hands peel Iodinated Contrast Media Allergy (Verified 04/14/21 15:06) Rash lisinopril Allergy (Verified 04/14/21 15:06) Hives, swellling peanut Allergy (Verified 04/14/21 15:06) Hives, swelling Penicillins Adverse Reaction (Intermediate, Verified 04/14/21 15:06) Anaphylaxis Home Medications Medication Instructions Recorded Confirmed Last Taken Type Sevelamer HCl 800 mg PO TID 11/20/19 04/18/21 04/17/21 18:30 History Cinacalcet [Sensipar] 30 mg PO DAILY 02/07/21 04/18/21 04/17/21 09:00 History Aspirin 325 mg PO QDAY 04/14/21 04/18/21 04/04/21 09:00 History Doxazosin [Cardura] 4 mg PO QDAY 04/14/21 04/18/21 04/17/21 21:00 History Metoprolol [Lopressor TAB] 100 mg PO BID 04/14/21 04/18/21 04/18/21 05:00 History calcitrioL [Rocaltrol] 0.25 mcg PO DAILY 04/14/21 04/18/21 04/17/21 09:00 History oxyCODONE /ACETAMINOPHEN [Percocet 1 tab PO ONCE PRN #30 tablet 04/18/21 Unknown Rx 5/325 mg] Active Medications Acetaminophen (Acetaminophen 325 Mg Tab) 650 mg PO Q4H PRN PRN Reason: Pain MILD(1-3)/Fever >100.5/ALLEN Albuterol (Albuterol 2.5 Mg/3 Ml Nebu) 2.5 mg IH Q4HRT PRN PRN Reason: Shortness Of Breath Apixaban (Apixaban 2.5 Mg Tab) 2.5 mg PO Q12HR SIGIFREDO; Protocol Aspirin (Aspirin 325 Mg Tab) 325 mg PO QDAY [facility] Calcitriol (Calcitriol 0.25 Mcg Cap) 0.25 mcg PO DAILY [facility] Cinacalcet (Cinacalcet 30 Mg Tab) 30 mg PO DAILY [facility] Doxazosin Mesylate (Doxazosin 4 Mg Tab) 4 mg PO QDAY [facility] Hydromorphone HCl (Hydromorphone 0.5 Mg/0.5 Ml Inj) 0.5 mg IV Q13H PRN PRN Reason: Pain , Severe (7-10) Sodium Chloride (Nacl 0.9% 500 Ml) 500 mls @ 50 mls/hr IV DIRECT SIGIFREDO Last Admin: 11/27/21 12:54 Dose: 50 mls/hr Metoprolol Tartrate (Metoprolol Tartrate 100 Mg Tab) 100 mg PO BID [facility] Miscellaneous Medication (Sevelamer Hcl) 800 mg PO TID SIGIFREDO Ondansetron HCl (Ondansetron 4 Mg/2 Ml Inj) 4 mg IV Q8H PRN PRN Reason: Nausea And Vomiting Oxycodone/Acetaminophen (Oxycodone /Acetaminophen 5-325mg Tab) 1 tab PO Q16H PRN PRN Reason: Pain, Moderate (4-6) Sodium Chloride (Sodium Chloride 0.9% 10 Ml Flush Syringe) 10 ml IV BID SIGIFREDO Sodium Chloride (Sodium Chloride 0.9% 10 Ml Flush Syringe) 10 ml IV PRN PRN PRN Reason: LINE FLUSH - Physical exam General appearance: no acute distress Lungs: Normal air movement Heart: Regular rate Extremities: normal temperature, normal color, abnormal (Thrombosed left arm AV graft) - Hospital course Hospital course: Patient underwent thrombectomy. During thrombectomy, patient had panic attack requiring administration of moderate sedation. Patient understood and agreed with procedure. Original plan was for local anesthetic, but due to panic attack, patient agreed to moderate sedation. Because of this, patient will need to be admitted to the hospital as he cannot be discharged afterwards. Discussed with Dr. Quiñonez about hemodialysis for hyperkalemia and need for overnight admission due to sedation. - Disposition Condition at discharge: Stable - Discharge Diagnoses (1) AV fistula thrombosis Status: Acute (2) Dialysis catheter clot or failure Status: Acute (3) ESRD (end stage renal disease) on dialysis Status: Acute (4) HTN (hypertension) Status: Acute Qualifiers: Hypertension type: essential hypertension Qualified Code(s): I10 - Essential (primary) hypertension Short Stay Discharge Plan Follow up with: PRIMARY MD ENRICO [Primary Care Provider] - 7 Days
[2021-11-27] MEDS: APIXABAN 2.5 MG TAB PO SCH (15:40)
[2021-11-27] MEDS ORDERED: CALCIUM GLUCONATE 2,000 MG in SODIUM CHLORIDE 0.9% 100 ML IV ONE (19:12)
[2021-11-27] MEDS ORDERED: SODIUM POLYSTYRENE 15 GM/60 ML ORAL LIQD PO ONE ×2 (19:13→21:26)
[2021-11-27] MEDS ORDERED: SEVELAMER HCL 800 MG PO SCH (20:00)
[2021-11-27] MEDS ORDERED: INSULIN REGULAR, HUMAN 100 UNITS/1 ML SUB-Q ONE (21:21)
[2021-11-27] MEDS ORDERED: SODIUM BICARB 8.4% 50 MEQ/50 ML SYRINGE IV ONE (21:22)
[2021-11-27] MEDS ORDERED: CALC GLUCONATE 1GM/NS 100 ML 1 GM/100 ML BAG IV ONE (21:24)
[2021-11-27] MEDS ORDERED: DEXTROSE 50% IN WATER (25GM) 50 ML SYRINGE IV ONE (21:28)
[2021-11-27] MEDS ORDERED: INSULIN REGULAR, HUMAN 100 UNITS/1 ML IV ONE (21:32)
[2021-11-27 21:51] LABS: INR 0.95 (0.87-1.13)
[2021-11-27] MEDS: METOPROLOL TARTRATE 100 MG TAB PO SCH (22:28)
[2021-11-28] MEDS ORDERED: SODIUM POLYSTYRENE 15 GM/60 ML ORAL LIQD PO ONE (01:35)
[2021-11-28 05:03] LABS: Calcium 8.4 mg/dL (8.4-10.2)
[2021-11-28] MEDS ORDERED: INSULIN REGULAR, HUMAN 100 UNITS/1 ML IV ONE (05:26)
[2021-11-28] MEDS ORDERED: SODIUM BICARB 8.4% 50 MEQ/50 ML SYRINGE IV ONE (05:27)
[2021-11-28] MEDS ORDERED: DEXTROSE 50% IN WATER (25GM) 50 ML SYRINGE IV ONE (05:36)
[2021-11-28] MEDS ORDERED: CALC GLUCONATE 1GM/NS 100 ML 1 GM/100 ML BAG IV ONE (05:45)
[2021-11-28] MEDS: SEVELAMER CARBONATE 800 MG TAB PO SCH ×4 (07:48→14:26)
[2021-11-28] MEDS: APIXABAN 2.5 MG TAB PO SCH ×2 (07:48→14:26)
[2021-11-28] MEDS ORDERED: SODIUM CHLORIDE 0.9% 100 ML IV PRN (09:18)
[2021-11-28] MEDS ORDERED: EPOETIN ALFA-EPBX 10,000 UNIT/1 ML VIAL IV PRN (09:18)
[2021-11-28] MEDS ORDERED: CALCITRIOL 0.25 MCG CAP PO SCH (10:00)
[2021-11-28] MEDS ORDERED: CINACALCET 30 MG TAB PO SCH (10:00)
[2021-11-28] MEDS ORDERED: ASPIRIN 325 MG TAB PO SCH (10:00)
[2021-11-28] MEDS ORDERED: DOXAZOSIN 4 MG TAB PO SCH (10:00)
--- NOTE | 2021-11-28 10:35 | Consultation ---
History of Present Illness - Reason for Consult end stage renal disease - History of Present Illness very pleasant 41-year-old -[place] male with a past medical history of end-stage renal disease secondary to hypertension, well known to our service as he is seen by my colleague Dr. Almonte for home hemodialysis treatments, presented to the hospital for planned left AV graft thrombectomy and possible permacath placement. Patient had successful thrombectomy done and there was no permacath placed at this time. He required overnight stay secondary to the need for use of general anesthesia during the procedure. Labs evaluated this morning concerning for hyperkalemia and discussed with patient that we will dialyze him this morning. Past History Past Medical History: ESRD, hypertension Past Surgical History: Other (Dialysis access) Social history: , lives with family. denies: smoking, alcohol abuse, prescription drug abuse Family history: hypertension Medications and Allergies Allergies Allergy/AdvReac Type Severity Reaction Status Date / Time amoxicillin Allergy Swelling, Verified 04/14/21 15:06 HIVES hydrocodone [From [place]] Allergy Hives, Verified 04/14/21 15:06 swelling, hands peel Iodinated Contrast Media Allergy Rash Verified 04/14/21 15:06 lisinopril Allergy Hives, Verified 04/14/21 15:06 swellling peanut Allergy Hives, Verified 04/14/21 15:06 swelling Penicillins AdvReac Intermediate Anaphylaxis Verified 04/14/21 15:06 Home Medications Medication Instructions Recorded Confirmed Last Taken Type Sevelamer HCl 2,400 mg PO TID 11/20/19 11/28/21 04/17/21 18:30 History Cinacalcet [Sensipar] 30 mg PO DAILY 02/07/21 04/18/21 04/17/21 09:00 History Aspirin 325 mg PO QDAY 04/14/21 04/18/21 04/04/21 09:00 History Doxazosin [Cardura] 4 mg PO QDAY 04/14/21 04/18/21 04/17/21 21:00 History Metoprolol [Lopressor TAB] 100 mg PO BID 04/14/21 04/18/21 04/18/21 05:00 History calcitrioL [Rocaltrol] 0.25 mcg PO DAILY 04/14/21 04/18/21 04/17/21 09:00 History oxyCODONE /ACETAMINOPHEN [Percocet 1 tab PO ONCE PRN #30 tablet 04/18/21 Unknown Rx 5/325 mg] Apixaban [Eliquis] 2.5 mg PO BID #60 11/28/21 Unknown Rx Active Meds: Active Medications Acetaminophen (Acetaminophen 325 Mg Tab) 650 mg PO Q4H PRN PRN Reason: Pain MILD(1-3)/Fever >100.5/ALLEN Albuterol (Albuterol 2.5 Mg/3 Ml Nebu) 2.5 mg IH Q4HRT PRN PRN Reason: Shortness Of Breath Apixaban (Apixaban 2.5 Mg Tab) 2.5 mg PO Q12HR SIGIFREDO; Protocol Last Admin: 11/28/21 07:48 Dose: Not Given Aspirin (Aspirin 325 Mg Tab) 325 mg PO QDAY [facility] Calcitriol (Calcitriol 0.25 Mcg Cap) 0.25 mcg PO DAILY [facility] Cinacalcet (Cinacalcet 30 Mg Tab) 30 mg PO DAILY [facility] Doxazosin Mesylate (Doxazosin 4 Mg Tab) 4 mg PO QDAY [facility] Epoetin Jordan-epbx (Epoetin Jordan-Epbx 10,000 Unit/1 Ml Vial) 10,000 unit IV NEVAEH PRN PRN Reason: hemodialysis Hydromorphone HCl (Hydromorphone 0.5 Mg/0.5 Ml Inj) 0.5 mg IV Q13H PRN PRN Reason: Pain , Severe (7-10) Sodium Chloride (Nacl 0.9% 500 Ml) 500 mls @ 50 mls/hr IV DIRECT SIGIFREDO Stop: 11/28/21 10:59 Last Admin: 11/27/21 12:54 Dose: 50 mls/hr Sodium Chloride (Nacl 0.9%) 100 mls @ 999 mls/hr IV NEVAEH PRN PRN Reason: Hypotension Metoprolol Tartrate (Metoprolol Tartrate 100 Mg Tab) 100 mg PO BID [facility] Last Admin: 11/27/21 22:28 Dose: 100 mg Ondansetron HCl (Ondansetron 4 Mg/2 Ml Inj) 4 mg IV Q8H PRN PRN Reason: Nausea And Vomiting Oxycodone/Acetaminophen (Oxycodone /Acetaminophen 5-325mg Tab) 1 tab PO Q16H PRN PRN Reason: Pain, Moderate (4-6) Sevelamer Carbonate (Sevelamer Carbonate 800 Mg Tab) 2,400 mg PO AC SIGIFREDO Sodium Chloride (Sodium Chloride 0.9% 10 Ml Flush Syringe) 10 ml IV BID SIGIFREDO Last Admin: 11/27/21 22:29 Dose: 10 ml Sodium Chloride (Sodium Chloride 0.9% 10 Ml Flush Syringe) 10 ml IV PRN PRN PRN Reason: LINE FLUSH Review of Systems Constitutional: fatigue Exam - Vital Signs Vital signs: Vital Signs Pulse Ox 100 11/27/21 10:52 - General Appearance General appearance: well-developed, well-nourished EENT: ATNC Neck: Present: neck supple, trachea midline Respiratory: Clear to Ascultation Heart: regular Gastrointestinal: Present: normal Integumentary: no rash Neurologic: no focal deficit Musculoskeletal: Present: deferred Psychiatric: cooperative Results - Lab Results 11/28/21 04:04 Most recent lab results Calcium 8.4 mg/dL (8.4-10.2) 11/28/21 04:04 Assessment and Plan - Patient Problems (1) Hyperkalemia Current Visit: Yes Status: Acute Plan to address problem: we will correct with hemodialysis this morning. Counseled patient on the importance of maintaining a low potassium diet. (2) AV fistula thrombosis Current Visit: No Status: Acute Plan to address problem: status post fistulogram and left AV graft thrombectomy. We will attempt to utilize AV graft today during dialysis treatment. We will continue to monitor closely. Vascular surgery input appreciated. (3) ESRD (end stage renal disease) on dialysis Current Visit: No Status: Chronic Plan to address problem: orders written for hemodialysis this morning. I anticipate that if graft is functioning well and patient is stable after treatment he should be able to be discharged home today. He will restart his home HD schedule. (4) HTN (hypertension) Current Visit: No Status: Chronic Qualifiers: Hypertension type: essential hypertension Qualified Code(s): I10 - Essential (primary) hypertension Plan to address problem: monitor blood pressures under current regimen.
[2021-11-28 11:59] LABS: Hepatitis B Surface Antigen Non-Reactive (Negative); Hepatitis C Virus Antibody Non-Reactive (NonReactive)
[2021-11-28] MEDS ORDERED: SEVELAMER CARBONATE 800 MG TAB PO SCH (12:00)
[2021-11-28] MEDS: METOPROLOL TARTRATE 100 MG TAB PO SCH (14:26)
--- NOTE | 2021-11-28 14:33 | Discharge Summary ---
Providers - Providers Date of Admission: 11/27/21 15:00 Date of discharge: 11/28/21 Attending physician: OTIS KRISHNAN 11/27/21 15:06 Consult to Physician [CONS] Routine Comment: Consulting Provider: DANIEL ALMONTE Physician Instructions: Reason For Exam: esrd Primary care physician: [facility] Hospitalization Condition: Stable Hospital course: 41-year-old -[place] male with a past medical history of end-stage renal disease secondary to hypertension, well known to our service as he is seen by my colleague Dr. Almonte for home hemodialysis treatments, presented to the hospital for planned left AV graft thrombectomy and possible permacath placement. Patient had successful thrombectomy done and there was no permacath placed at this time. He required overnight stay secondary to the need for use of general anesthesia during the procedure. Labs evaluated this morning concerning for hyperkalemia and nephrology was consulted and had hemodialysis. Patient tolerated hemodialysis well without any active issue. Patient was then discharged home in stable condition with outpatient follow-up. Disposition: 30 STILL A PATIENT Final Discharge Diagnosis (Prints w/discharge instructions): -- Malfunctioning HD graft. -- Anemia of chronic disease. -- End-stage renal disease on hemodialysis. -- Hypertension Time spent for discharge: 34 minutes Core Measure Documentation - Palliative Care Palliative Care/ Comfort Measures: Not Applicable - Core Measures Any of the following diagnoses?: none Exam - Physical Exam Narrative exam: GENERAL: well-developed and well-nourished AAM lying on bed appeared to be in no discomfort. HEENT: Normocephalic. Atraumatic. No conjunctival congestion or icterus. Patient has moist mucous membranes. NECK: Supple. Trachea midline. CHEST/LUNGS: Clear to auscultated bilaterally, breathing nonlabored. No wheezes crackles or rhonchi. HEART/CARDIOVASCULAR: Regular in rate and rhythm. S1 and S2 positive. ABDOMEN: Abdomen is soft, nontender. Patient has normal bowel sounds. SKIN: There is no rash. Warm and dry. NEURO: No focal motor deficit. Follows command. MUSCULOSKELETAL: No joint effusion or tenderness. EXTRIMITY: No edema, no cyanosis or clubbing. PSYCH: Cooperative. - Constitutional Vitals: Temp Pulse Resp BP Pulse Ox 98.1 F 59 L 20 131/69 100 11/28/21 11:11/28/21 12:45 11/28/21 11:26 11/28/21 12:45 11/28/21 11:26 Plan Activity: advance as tolerated Weight Bearing Status: Weight Bear as Tolerated Diet: renal Follow up with: PRIMARY CARE, [Primary Care Provider] - 7 Days Prescriptions: Apixaban [Eliquis] 2.5 mg PO BID #60
[2021-11-28 14:59] VITALS: BP 126/57
== END 2021-11-28 15:17 | disposition home or self-care (01) ==
LOC: CATHLABREC 09:42 → INTOOBSV 15:00 → 3A 15:00
PROVIDERS: ADMIT Internal Medicine; ATTEND Internal Medicine
DX: T82.868A Thrombosis due to vascular prosthetic devices, implants and grafts, initial encounter (principal); E87.70 Fluid overload, unspecified; I12.0 Hypertensive chronic kidney disease with stage 5 chronic kidney disease or end stage renal disease; N18.6 End stage renal disease; E87.2 Acidosis; E87.5 Hyperkalemia; E66.9 Obesity, unspecified; Z99.2 Dependence on renal dialysis; Z79.82 Long term (current) use of aspirin; Z68.35 Body mass index [BMI] 35.0-35.9, adult
CPT/HCPCS: 36415; 36905; 80048; 80074; 82565; 84132; 85610; 96365; 96366; 96375; 96376; G0378; J3490; Q9967; C1725; C1757; C1769; C1894; G0257; J0360; J0610; J0885; J1200; J1644; J1815; J2250; J2930; J2997; J3010; J7040